=== PATIENT | female | born 1995 | race Caucasian/White ===

== ENCOUNTER → 2017-06-04 | Outpatient (REF) | payer BC ==
[2017-06-04 14:13] LABS: BASO % 0.4 % (0.0-1.0); EOS # 0.1 10^3/uL (0.0-0.50); IMMATURE GRANULOCYTE % 0.3 % (0-0); LYMPH # 1.8 10^3/uL (1.5-6.5); LYMPH % 25.6 % (24.0-44.0); MEAN CORPUSCULAR HEMOGLOBIN 29.4 pg (27.0-33.0); MEAN CORPUSCULAR HGB CONC 33.1 g/dl (32.0-36.5); MEAN CORPUSCULAR VOLUME 88.8 fl (80.0-96.0); MONO # 0.3 10^3/uL (0.0-0.8); MONO % 4.7 % (0.0-5.0); NEUTROPHILS # 4.7 10^3/uL (1.8-7.7); PLATELET COUNT, AUTOMATED 285 10^3/uL (150-450); RED CELL DISTRIBUTION WIDTH 12.3 % (11.5-14.5); WHITE BLOOD COUNT 6.8 10^3/uL (4.0-10.0)
[2017-06-04 14:27] LABS: ALBUMIN 4.1 GM/DL (3.2-5.2); ALBUMIN/GLOBULIN RATIO 1.32 (1.00-1.93); ALKALINE PHOSPHATASE 62 U/L (45-117); ALT/SGPT 29 U/L (12-78); ANION GAP 8 MEQ/L (8-16); AST/SGOT 12 U/L (7-37); BILIRUBIN,TOTAL 0.4 MG/DL (0.2-1.0); BLOOD UREA NITROGEN 7 MG/DL (7-18); CALCIUM LEVEL 9.4 MG/DL (8.5-10.1); CARBON DIOXIDE LEVEL 25 MEQ/L (21-32); CHLORIDE LEVEL 108 MEQ/L (98-107); CREATININE FOR GFR 0.75 MG/DL (0.55-1.02); GLOMERULAR FILTRATION RATE > 60.0 (>60); GLUCOSE, FASTING 91 MG/DL (70-105); POTASSIUM SERUM 4.2 MEQ/L (3.5-5.1); SODIUM LEVEL 141 MEQ/L (136-145); TOTAL PROTEIN 7.2 GM/DL (6.4-8.2)
[2017-06-04 16:04] LABS: ERYTHROCYTE SEDIMENTATION RATE 2 mm/hr (0-20)
== END ==
LOC: M LABNEURO 10:57
PROVIDERS: ATTEND Psychiatry & Neurology Neurology
DX: R51 Headache (principal); R25.1 Tremor, unspecified

== ENCOUNTER → 2019-03-01 | Outpatient (REF) | payer BC ==
[~2019-03-01] MED LIST: CLON0.5T17; DULO1CAP6
[2019-03-04 00:07] LABS: Lyme Disease IgG/IgM Antibodie <0.91 ISR (0.00-0.90); Lyme Disease IgM Ab Quantitati <0.80 index (0.00-0.79)
== END ==
LOC: M SFHCLERA 16:18
PROVIDERS: ATTEND Physician Assistant Medical
DX: G62.9 Polyneuropathy, unspecified (principal)

== ENCOUNTER 2019-03-03 10:13 | Emergency (ER) | payer BC ==
[~2019-03-03] VITALS: Ht 167.6 cm; Wt 93.1 kg
[2019-03-03] MEDS ORDERED: CLON0.5T17 (10:26)
[2019-03-03] MEDS ORDERED: DULO1CAP6 (10:26)
[2019-03-03] MEDS ORDERED: LORazepam 2 MG/ML VIAL (J2060) IV STA (11:58)
[2019-03-03] MEDS ORDERED: CIPROFLOXACIN 500 MG TAB PO ONE (12:00)
[2019-03-03 12:06] LABS: BASO % 0.3 % (0.0-1.0); EOS % 0.2 % (0.0-3.0); HEMATOCRIT 38.3 % (36.0-47.0); HEMOGLOBIN 13.8 g/dl (12.0-15.5); LYMPH % 15.8 % (24.0-44.0); MEAN CORPUSCULAR HEMOGLOBIN 37.3 pg (27.0-33.0); MEAN CORPUSCULAR VOLUME 103.5 fl (80.0-96.0); MONO # 0.6 10^3/uL (0.0-0.8); MONO % 4.9 % (0.0-5.0); NEUTROPHILS # 9.9 10^3/uL (1.8-7.7); NEUTROPHILS % 78.4 % (36.0-66.0); PLATELET COUNT, AUTOMATED 312 10^3/uL (150-450); WHITE BLOOD COUNT 12.6 10^3/uL (4.0-10.0)
[2019-03-03 12:27] LABS: BLOOD UREA NITROGEN 6 MG/DL (7-18); C REACTIVE PROTEIN QUANTITATIV 1.38 MG/DL (0.00-0.30); CALCIUM LEVEL 9.5 MG/DL (8.5-10.1); CARBON DIOXIDE LEVEL 26 MEQ/L (21-32); CHLORIDE LEVEL 101 MEQ/L (98-107); CREATININE FOR GFR 0.63 MG/DL (0.55-1.30); GLOMERULAR FILTRATION RATE > 60.0 (>60); GLUCOSE, FASTING 94 MG/DL (70-100); POTASSIUM SERUM 3.6 MEQ/L (3.5-5.1); SODIUM LEVEL 135 MEQ/L (136-145)
[2019-03-03 12:45] LABS: ERYTHROCYTE SEDIMENTATION RATE 22 mm/hr (0-20)
--- NOTE | 2019-03-03 14:08 | REP ---
REASON FOR EXAM: Progressive lower extremity weakness. COMPARISON: None. TECHNIQUE: MRI of the brain was performed without contrast utilizing axial T1, axial T2, axial FLAIR, axial GRE, axial diffusion-weighted images and sagittal T1 FLAIR as well as sagittal 3D T1-weighted imaging. FINDINGS: There is no restricted diffusion to suggest acute ischemia or infarction. The ventricles and sulci are symmetric. There is no mass effect, midline shift or basal cistern effacement. There is no extra-axial fluid collection. The visualized flow voids are patent. The orbital contents are intact. The visualized paranasal sinuses and mastoid air cells are clear. There is a small mucous retention cyst or polyp within the right maxillary sinus. The remaining visualized paranasal sinuses and mastoid air cells are clear. There is prominence of the adenoid tonsils. There is rightward deviation of the nasal septum with a rightward spur. IMPRESSION: 1. No acute intracranial abnormality. 2. Small mucous retention cyst or polyp within the right maxillary sinus. 3. Prominence of the adenoid tonsils. 4. Rightward deviation of the nasal septum with spur. Electronically Signed by Dougie Weeks MD 03/03/2019 06:26 P
[2019-03-03] MEDS ORDERED: LIDOCAINE 2% W/EPIN INJ 20ML **PRES FREE As Ordered ONE (14:18)
[2019-03-03] MEDS ORDERED: LIDOCAINE 2% W/EPIN INJ 20ML **PRES FREE INJ ONE (14:30)
[2019-03-03 15:36] LABS: APPEARANCE, CSF CLEAR (CLEAR); COLOR, CSF COLORLESS (COLORLESS); CSF TUBE# CELL CNT TUBE 4
[2019-03-03 15:40] LABS: CSF TUBE# GLU TUBE 2; CSF TUBE# TP TUBE 2; GLUCOSE CSF 55 MG/DL (40-75); TOTAL PROTEIN,CSF 33 MG/DL (15-45)
[2019-03-03] MEDS ORDERED: NS 1,000 ML IV ONE (15:45)
[2019-03-03 17:42] VITALS: BP 136/72
== END 2019-03-03 18:03 | disposition home or self-care (01) ==
LOC: M ED 10:13
DX: R20.2 Paresthesia of skin (principal); R29.818 Other symptoms and signs involving the nervous system; M54.2 Cervicalgia; F41.9 Anxiety disorder, unspecified; R11.0 Nausea; F17.210 Nicotine dependence, cigarettes, uncomplicated; Z79.899 Other long term (current) drug therapy
CPT/HCPCS: 62270; 70551; 80048; 82945; 84157; 84702; 85025; 85652; 86140; 87070; 87205; 89050; 96374; 99284; J2060

== ENCOUNTER 2019-03-05 13:42 | Emergency (ER) | payer BC ==
[~2019-03-05] VITALS: Ht 167.6 cm; Wt 92.7 kg
[2019-03-05] MEDS ORDERED: NS 1,000 ML IV SCH (14:30)
[2019-03-05 14:49] LABS: ALBUMIN 3.4 GM/DL (3.2-5.2); ALT/SGPT 39 U/L (12-78); BILIRUBIN,TOTAL 0.8 MG/DL (0.2-1.0); BLOOD UREA NITROGEN 7 MG/DL (7-18); CALCIUM LEVEL 9.9 MG/DL (8.5-10.1); CARBON DIOXIDE LEVEL 20 MEQ/L (21-32); CHLORIDE LEVEL 104 MEQ/L (98-107); CREATININE FOR GFR 0.72 MG/DL (0.55-1.30); GLOMERULAR FILTRATION RATE > 60.0 (>60); GLUCOSE, FASTING 94 MG/DL (70-100); POTASSIUM SERUM 3.8 MEQ/L (3.5-5.1); RHEUMATOID FACTOR QUANT < 10.0 IU/ML (<15.0); SODIUM LEVEL 136 MEQ/L (136-145); TOTAL PROTEIN 7.1 GM/DL (6.4-8.2)
[2019-03-05 14:58] LABS: HEMATOCRIT 36.1 % (36.0-47.0); HEMOGLOBIN 13.1 g/dl (12.0-15.5); MEAN CORPUSCULAR HEMOGLOBIN 37.4 pg (27.0-33.0); MEAN CORPUSCULAR HGB CONC 36.3 g/dl (32.0-36.5); MEAN CORPUSCULAR VOLUME 103.1 fl (80.0-96.0); PLATELET COUNT, AUTOMATED 309 10^3/uL (150-450); WHITE BLOOD COUNT 10.8 10^3/uL (4.0-10.0)
[2019-03-05 17:42] VITALS: BP 132/77
[2019-03-09 00:06] LABS: ANCA-ATYPICAL <1:20 titer (Neg:<1:20); ANTINUCLEAR ANTIBODIES DIRECT Negative (Negative); CYTOPLASMIC NEUTROP AB ANCA-C <1:20 titer (Neg:<1:20); PERINUCLEAR AB ANCA-P <1:20 titer (Neg:<1:20)
[2019-03-11] MEDS ORDERED: CLON0.5T2 PO (17:41)
== END 2019-03-05 17:43 | disposition short-term general hospital (02) ==
LOC: M ED 13:42
DX: R29.818 Other symptoms and signs involving the nervous system (principal); Z79.899 Other long term (current) drug therapy; F17.210 Nicotine dependence, cigarettes, uncomplicated

== ENCOUNTER 2019-03-11 16:04 | Inpatient (IN) | payer BC ==
[~2019-03-11] VITALS: Ht 167.6 cm; Wt 96.3 kg
--- NOTE | 2019-03-11 16:06 | HPEPDOC ---
[employer]ann[employer] Engineer Note DATE OF ADMISSION: 03/11/19 SOURCE OF ADMISSION INFORMATION: 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 She was tested for Lyme disease and had an LP both of which was negative, however did have an EMG study with pathology noted in the left radial and right peroneal nerves after which she was transferred from [facility] ED to [facility] for further work-up. She was admitted to the neurology service and started on IV Solumedrol for working diagnosis of mononeuritis multiplex. Autoimmune work-up was initiated and she was found to have low folate levels and high homocysteine levels. She was switched to po steroids. She developed neuropathic pain for which gabapentin and tizanidine were started. She underwent a sural nerve biopsy on 03/11/19 performed by neurosurgery with results pending. Patient was found to have an E. coli positive Ucx, thought to be contaminated and was not treated. She reported both ankle and both wrist were weak and had an aching sensation in her legs making it difficult to walk. She was evaluated by therapy and found to deficits well below her prior level of function and deemed medically appropriate for discharge to ARU on 03/11/19. On initial evaluation she reports she has had difficulty swallowing intermittently for years and attributes this to her anxiety, reporting a globus sensation. She believes the Klonopin and CYmbalta are working. She also is concerned that she may have a stress fracture in her left ankle, though denies any falls/trauma because when she had visit urgent care this diagnosis had been REVIEW OF SYSTEMS: The following is a completed review of systems and has been reviewed. Review of systems otherwise unremarkable. PAIN: Patient self reports bilateral calf cramping and aching sensation in her feet EYES: No recent vision changes EARS, NOSE, & THROAT: No throat pain, or dysphagia, or rhinorrhea CARDIOVASCULAR: Denies chest pain or palpitations PULMONARY: Denies shortness of breath GASTROINTESTINAL: Denies constipation/diarrhea GENITOURINARY: denies dysuria MUSCULOSKELETAL: bilateral UE and LE weakness NEUROLOGICAL:paresthesias with left wrist drop and bilateral foot drop SKIN: right antecubital ecchymosis PSYCHIATRIC: +anxious All other review of systems found to be negative. PAST MEDICAL HISTORY: as per HPI PAST SURGICAL HISTORY: none ALLERGIES: Please see below. MEDICATIONS: Please see below. 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 GENERAL: Pleasant and cooperative. No acute distress. anxious appearing HEENT: PERRL. Extraocular movements intact. Clear conjunctiva CARDIOVASCULAR: Regular rate and rhythm. No murmurs, rubs, or gallops LUNGS: Clear to auscultation bilaterally. No wheezes. No rhonchi ABDOMEN: Soft, nontender, nondistended. Positive bowel sounds. Normal active bowel sounds NEUROLOGICAL: Alert and oriented times three. Cranial nerves II through XII grossly intact. Sensation slightly decreased to light touch bilat LE in non- dermatomal fashion, dorsum of left hand depressed reflexes throughout EXTREMITIES: 4/5 bilateral elbow flexors, abduction, elbow extension, 3/5 right wrist extension, 0/5 left wrist extension, 4/5 bilat hip flexors, 3/5 knee extensors, ankle DF and EHL mild bilateral foot ad calf edema SKIN: left posterior calf incision without induration or erythema LABORATORY DATA: Please see below. IMAGING:Imaging documentation personally reviewed by record FUNCTIONAL STATUS: Premorbid: Independent with all activities of daily life as well as mobility On Admission: total assist for stairs, Max assist functional transfers, Min assist for 6 steps with 2 people GOALS: Mod-I household distances, stairs, functional transfers, bathing, dressing, toileting, medical optimization, DME ASSESSMENT:23-year-old F with past medical history of anxiety who presents status post acute onset of paresthesias and weakness diagnosed with mononeuritis multiplex PLAN: 1. Rehab: PT- strengthen/stretch/maintain ROM bilat LE, improve ambulation tolerance and endurance OT-PT- strengthen/stretch/maintain ROM bilat UE, utilize resting wrist splints bilat, ok to use Estim 2. Cardio: patient with elevated BPS, will start on lisinopril, medicine consulted to assist in management 3. Resp: encourgae incentive spirometry 4. Neuro: mononeuritis multiplex with left wrist drop, bilateral partial foot drop, neuropathic pain and difficulty bearing weight- c/u prednisone, autoimmune w/u and sural nerve bx results pending, will follow-up with [facility] mathis on discharge -etiology unknown, however on high dose folate 5mg daily for deficiency and elevated homocysteinemia 5. Pain: Tylenol, tizanidine, gabapentin, will add lidoderm patch to tops of feet 6. DVT ppx: Lovenox will order Dopplers 7. GI ppx: protnix 8. Psych- pmh anxiety, c/u Cymbalta and klonopin 9. Dispo: tbd POST ADMISSION PHYSICIAN EVALUATION: Medical and functional status: Description of medical status, medical assessment: As above. Rehabilitation diagnosis and current and prior cold morbid medical conditions as above. Risk of complications and plans to mitigate them as above. Description of functional status current status is as above. Prior status as above. Status compared to preadmission: There are no clinically significant differences between the patient's current status and the information described on the preadmission screening document. Treatment plan anticipated: Treatment plan is as described above. Required disciplines including physical therapy, occupational therapy, others as noted above Intensity of services: 3 hours a day, 6 days a week. Special considerations: There are no specific special or safety considerations that would likely preclude immediate implementation of an intensive rehabilitation program or subsequently influence the plan of care. ATTESTATION: Considering all the information above, it is my best judgment that this patient requires intensive rehabilitation therapy as described above and an inpatient hospital environment due to the complexity of nursing, medical, and rehabilitation needs required by the patient. Furthermore, this patient can reasonably be expected to participate in an benefit from an inpatient rehabilitation stay with an interdisciplinary team approach to the delivery of rehabilitation care under the direction and supervision of rehabilitation physician. PROGNOSIS: good ESTIMATED LENGTH OF STAY:21-24 days. PROJECTED DISCHARGE DESTINATION: Home with family support and any durable medical equipment required to increase functional safety and mobility TIME SPENT COUNSELING AND COORDINATING INITIAL CARE: Greater than 70 minutes. Vital Signs Vital Signs Date Time Temp Pulse Resp B/P (MAP) Pulse Ox O2 Delivery O2 Flow Rate FiO2 03/11/19 16:23 97.4 58 18 174/96 (122) 97 Home Medications Scheduled Clonazepam (Clonazepam) 0.5 Mg Tablet, 0.5 MG PO BID, (Reported) Duloxetine HCl (Duloxetine HCl) 60 Mg Capsule.dr, 60 MG PO DAILY, (Reported) Folic Acid (Folic Acid) 1 Mg Tablet, 5 MG PO DAILY, (Reported) Gabapentin (Gabapentin) 300 Mg Capsule, 300 MG PO TID, (Reported) Pantoprazole Sodium (Pantoprazole Sodium) 40 Mg Tablet.dr, 40 MG PO DAILY, (Reported) Prednisone (Prednisone) 20 Mg Tablet, 80 MG PO ASDIRECTED, (Reported) 80MG DAILY FOR 5 DAYS, THEN DECREASE TO 60MG DAILY, TO START 03/12 [facility] Tizanidine HCl (Tizanidine HCl) 4 Mg Tablet, 4 MG PO BID, (Reported) Scheduled PRN Oxycodone HCl (Oxycodone HCl) 5 Mg Tablet, 2.5 MG PO Q6H PRN for PAIN, (Reported) Allergies Coded Allergies: No Known Allergies (Unverified , 06/04/17) A-FIB/CHADSVASC A-FIB History Current/History of A-Fib/PAF?: No Current PO Anticoag Therapy: No DEBRA ARAIZA MD Mar 11, 2019 16:06
[2019-03-11] MEDS ORDERED: oxyCODONE 5MG TAB PO PRN (16:15)
[2019-03-11] MEDS ORDERED: MOM 30ML SUSPENSION UDC PO PRN (16:15)
[2019-03-11] MEDS ORDERED: BISACODYL 10 MG SUPP PR PRN (16:15)
[2019-03-11] MEDS ORDERED: tiZANidine 4 MG TAB PO PRN (16:15)
[2019-03-11 16:23] VITALS: BP 174/96
[2019-03-11] MEDS ORDERED: GLUCOSE 4 GM CHEW TABLET PO PRN (16:30)
[2019-03-11] MEDS ORDERED: DEXTROSE 50% 50 ML SYRINGE IV PRN (16:30)
[2019-03-11] MEDS ORDERED: GLUCAGON FOR INJ 1 MG VIAL (J1610) SC PRN (16:30)
[2019-03-11] MEDS ORDERED: HumaLOG INSULIN (NovoLOG) PER UNIT SC SCH (17:30)
[2019-03-11] MEDS ORDERED: GABA-843 PO (17:41)
[2019-03-11] MEDS ORDERED: DULO60CA35 PO (17:41)
[2019-03-11] MEDS ORDERED: PRED20TA PO (17:41)
[2019-03-11] MEDS ORDERED: FOLI1TAB11 PO (17:41)
[2019-03-11] MEDS ORDERED: TIZA4TAB4 PO (17:41)
[2019-03-11] MEDS ORDERED: PANT40TA3 PO (17:41)
[2019-03-11] MEDS ORDERED: OXYC-517 PO (17:41)
[2019-03-11] MEDS ORDERED: CLON0.5T8 PO (17:41)
[2019-03-11] MEDS ORDERED: PILL CUTTER 1 EACH XX PRN (18:00)
[2019-03-11 20:00] VITALS: BP 150/75
[2019-03-11] MEDS: clonazePAM 0.5 MG TAB PO SCH (20:52)
[2019-03-11] MEDS: GABAPENTIN 300 MG CAP PO SCH (20:52)
[2019-03-11] MEDS: DOCUSATE SODIUM 100 MG CAP PO SCH (20:52)
[2019-03-11] MEDS: ACETAMINOPHEN TAB 650MG DOSE (2X325MG) PO PRN (20:59)
[2019-03-11] MEDS: SENNA 8.6 MG TAB (SENOKOT) PO SCH (20:59)
[2019-03-12] MEDS: ACETAMINOPHEN TAB 650MG DOSE (2X325MG) PO PRN ×4 (03:05→21:30)
[2019-03-12 06:00] VITALS: BP 151/77
[2019-03-12 07:42] LABS: BASO % 0.1 % (0.0-1.0); EOS % 0.2 % (0.0-3.0); HEMATOCRIT 31.6 % (36.0-47.0); HEMOGLOBIN 10.9 g/dl (12.0-15.5); LYMPH # 1.6 10^3/uL (1.5-6.5); LYMPH % 14.3 % (24.0-44.0); MEAN CORPUSCULAR HEMOGLOBIN 35.2 pg (27.0-33.0); MEAN CORPUSCULAR HGB CONC 34.5 g/dl (32.0-36.5); MEAN CORPUSCULAR VOLUME 101.9 fl (80.0-96.0); MONO # 0.8 10^3/uL (0.0-0.8); MONO % 6.8 % (0.0-5.0); NEUTROPHILS # 8.5 10^3/uL (1.8-7.7); NEUTROPHILS % 77.1 % (36.0-66.0); PLATELET COUNT, AUTOMATED 223 10^3/uL (150-450)
[2019-03-12] MEDS: GABAPENTIN 300 MG CAP PO SCH ×3 (07:49→21:23)
[2019-03-12] MEDS: PANTOPRAZOLE 40MG TAB (PROTONIX) PO SCH (07:50)
[2019-03-12] MEDS: FOLIC ACID 1 MG TAB PO SCH (07:50)
[2019-03-12] MEDS: clonazePAM 0.5 MG TAB PO SCH ×2 (07:51→21:24)
[2019-03-12] MEDS: predniSONE 20 MG TAB PO SCH (07:51)
[2019-03-12] MEDS: DULoxetine 30 MG CAP (CYMBALTA) PO SCH (07:51)
[2019-03-12] MEDS: DOCUSATE SODIUM 100 MG CAP PO SCH ×2 (07:51→21:24)
[2019-03-12] MEDS: ENOXAPARIN 40 MG/0.4 ML SYRINGE (J1650) SC SCH (07:52)
[2019-03-12 08:07] LABS: ALBUMIN 2.6 GM/DL (3.2-5.2); ALT/SGPT 262 U/L (12-78); BILIRUBIN,TOTAL 0.6 MG/DL (0.2-1.0); BLOOD UREA NITROGEN 19 MG/DL (7-18); CALCIUM LEVEL 8.4 MG/DL (8.5-10.1); CARBON DIOXIDE LEVEL 29 MEQ/L (21-32); CHLORIDE LEVEL 105 MEQ/L (98-107); CREATININE FOR GFR 0.39 MG/DL (0.55-1.30); GLOMERULAR FILTRATION RATE > 60.0 (>60); GLUCOSE, FASTING 79 MG/DL (70-100); POTASSIUM SERUM 3.7 MEQ/L (3.5-5.1); SODIUM LEVEL 139 MEQ/L (136-145); TOTAL PROTEIN 5.4 GM/DL (6.4-8.2)
[2019-03-12] MEDS: LIDOCAINE 5% (LIDODERM) PATCH TD SCH (10:22)
[2019-03-12] MEDS: LISINOPRIL 10 MG TAB PO SCH (10:22)
--- NOTE | 2019-03-12 14:45 | REP ---
Left ankle four views: On the AP view, the lateral portion of the ankle mortise appears slightly widened. This should be correlated with clinical point tenderness. This could be artifact from positioning. There is an accessory ossicle at the tip of the medial malleolus. No fracture is identified. Mineralization and joint spaces are otherwise unremarkable. There is a small calcaneal plantar spur. Impression: Questionable widening of the lateral portion of the ankle mortise. This may be secondary to ligamentous injury. Correlation with clinical point tenderness is recommended. Otherwise, negative left ankle. Electronically Signed by Lauro Thibodeaux MD 03/12/2019 02:36 P
--- NOTE | 2019-03-12 14:55 | REP ---
Bilateral lower extremity Duplex Doppler venous ultrasound: Real time compression and duplex Doppler interrogation of the bilateral lower extremity deep venous system is performed. Bilaterally, the common femoral, superficial femoral and popliteal veins are fully compressible with transducer pressure and demonstrate normal spontaneous and phasic flow, without evidence of deep venous thrombosis. Impression: No evidence of deep venous thrombosis of the bilateral lower extremity femoral popliteal venous system. Electronically Signed by Lauro Jay MD 03/12/2019 02:46 P
[2019-03-12 20:00] VITALS: BP 170/108
[2019-03-12] MEDS: SENNA 8.6 MG TAB (SENOKOT) PO SCH (21:24)
[2019-03-12] MEDS: **NOTE PATIENT COMMENT** MISC XX SCH (21:26)
[2019-03-13 06:00] VITALS: BP 168/100
[2019-03-13 07:20] VITALS: BP 168/74
--- NOTE | 2019-03-13 07:52 | REPVR ---
EXAM: US Abdomen Limited, Right Upper Quadrant EXAM DATE/TIME: 03/13/2019 6:45 AM CLINICAL HISTORY: 23 years old, female; Abnormal findings; Abnormal lab test; Elevated liver enzymes; Additional info: Elevated alt/ast TECHNIQUE: Imaging protocol: Real-time ultrasound of the abdomen with image documentation. Examination was focused on the right upper quadrant. COMPARISON: No relevant prior studies available. FINDINGS: Liver: The liver is increased in echotexture, suggesting fatty infiltration and/or fibrosis. There is no demonstrated mass or intrahepatic biliary ductal dilatation, evaluation for which is somewhat limited due to the increased echotexture. Gallbladder: The gallbladder is without demonstrated stones, sludge or wall thickening, and there is no pericholecystic fluid. Sonographic Erwin sign is reportedly negative. Common bile duct: The common bile duct is normal in size for a patient of this age at 3.5 mm. Pancreas: The pancreas is largely obscured by overlying bowel gas. Right kidney: The right kidney measures 12.1 x 5.2 x 6.4 cm. There is no hydronephrosis or demonstrated renal stone, cyst or mass. Inferior vena cava: The IVC is present. IMPRESSION: 1. Echogenic liver, suggesting fatty infiltration and/or fibrosis. 2. Pancreas largely obscured by bowel gas. Electronically signed by: Emir Mcnamara On 03/13/2019 07:52:48 AM
[2019-03-13] MEDS: ENOXAPARIN 40 MG/0.4 ML SYRINGE (J1650) SC SCH (10:28)
[2019-03-13] MEDS: predniSONE 20 MG TAB PO SCH (10:29)
[2019-03-13] MEDS: FOLIC ACID 1 MG TAB PO SCH (10:29)
[2019-03-13] MEDS: DULoxetine 30 MG CAP (CYMBALTA) PO SCH (10:31)
[2019-03-13] MEDS: ACETAMINOPHEN TAB 650MG DOSE (2X325MG) PO PRN (10:31)
[2019-03-13] MEDS: clonazePAM 0.5 MG TAB PO SCH ×2 (10:31→21:08)
[2019-03-13] MEDS: GABAPENTIN 300 MG CAP PO SCH ×3 (10:31→21:08)
[2019-03-13] MEDS: DOCUSATE SODIUM 100 MG CAP PO SCH ×2 (10:32→21:08)
[2019-03-13] MEDS: PANTOPRAZOLE 40MG TAB (PROTONIX) PO SCH ×2 (10:32→21:08)
[2019-03-13] MEDS: LISINOPRIL 10 MG TAB PO SCH (10:32)
[2019-03-13] MEDS: LIDOCAINE 5% (LIDODERM) PATCH TD SCH (10:33)
[2019-03-13 14:00] VITALS: BP 139/92
[2019-03-13 20:00] VITALS: BP 138/92
[2019-03-13] MEDS: SENNA 8.6 MG TAB (SENOKOT) PO SCH (21:08)
[2019-03-13] MEDS: **NOTE PATIENT COMMENT** MISC XX SCH (21:11)
[2019-03-14 06:00] VITALS: BP 166/96
[2019-03-14 06:40] LABS: HEMATOCRIT 35.2 % (36.0-47.0); HEMOGLOBIN 12.3 g/dl (12.0-15.5); MEAN CORPUSCULAR HEMOGLOBIN 35.2 pg (27.0-33.0); MEAN CORPUSCULAR HGB CONC 34.9 g/dl (32.0-36.5); MEAN CORPUSCULAR VOLUME 100.9 fl (80.0-96.0); PLATELET COUNT, AUTOMATED 209 10^3/uL (150-450); RED BLOOD COUNT 3.49 10^6/uL (4.00-5.40); WHITE BLOOD COUNT 11.9 10^3/uL (4.0-10.0)
[2019-03-14] MEDS: PANTOPRAZOLE 40MG TAB (PROTONIX) PO SCH ×2 (09:02→20:15)
[2019-03-14] MEDS: GABAPENTIN 300 MG CAP PO SCH ×3 (09:02→20:15)
[2019-03-14] MEDS: FOLIC ACID 1 MG TAB PO SCH (09:02)
[2019-03-14] MEDS: clonazePAM 0.5 MG TAB PO SCH ×2 (09:02→20:15)
[2019-03-14] MEDS: DOCUSATE SODIUM 100 MG CAP PO SCH ×2 (09:02→20:15)
[2019-03-14] MEDS: ENOXAPARIN 40 MG/0.4 ML SYRINGE (J1650) SC SCH (09:02)
[2019-03-14] MEDS: DULoxetine 30 MG CAP (CYMBALTA) PO SCH (09:02)
[2019-03-14] MEDS: predniSONE 20 MG TAB PO SCH (09:02)
[2019-03-14] MEDS: LIDOCAINE 5% (LIDODERM) PATCH TD SCH (09:02)
[2019-03-14] MEDS: LISINOPRIL 20 MG TAB PO SCH (09:03)
[2019-03-14 14:00] VITALS: BP 116/80
[2019-03-14 20:00] VITALS: BP 129/78
[2019-03-14] MEDS: **NOTE PATIENT COMMENT** MISC XX SCH (20:15)
[2019-03-14] MEDS: SENNA 8.6 MG TAB (SENOKOT) PO SCH (20:15)
[2019-03-15 06:00] VITALS: BP 136/91
[2019-03-15] MEDS: DOCUSATE SODIUM 100 MG CAP PO SCH ×2 (09:00→22:20)
[2019-03-15] MEDS: LIDOCAINE 5% (LIDODERM) PATCH TD SCH (09:02)
[2019-03-15] MEDS: FOLIC ACID 1 MG TAB PO SCH (09:02)
[2019-03-15] MEDS: PANTOPRAZOLE 40MG TAB (PROTONIX) PO SCH ×2 (09:03→22:20)
[2019-03-15] MEDS: ENOXAPARIN 40 MG/0.4 ML SYRINGE (J1650) SC SCH (09:03)
[2019-03-15] MEDS: LISINOPRIL 20 MG TAB PO SCH (09:03)
[2019-03-15] MEDS: GABAPENTIN 300 MG CAP PO SCH ×3 (09:03→22:20)
[2019-03-15] MEDS: DULoxetine 30 MG CAP (CYMBALTA) PO SCH (09:03)
[2019-03-15] MEDS: predniSONE 20 MG TAB PO SCH (09:03)
[2019-03-15] MEDS: clonazePAM 0.5 MG TAB PO SCH ×2 (09:03→22:20)
[2019-03-15] MEDS ORDERED: IBUPROFEN 400 MG TAB PO PRN (12:00)
[2019-03-15 14:00] VITALS: BP 134/86
[2019-03-15 20:00] VITALS: BP 162/100
[2019-03-15 20:10] VITALS: BP 128/78
[2019-03-15] MEDS: **NOTE PATIENT COMMENT** MISC XX SCH (21:00)
[2019-03-15] MEDS: SENNA 8.6 MG TAB (SENOKOT) PO SCH (22:20)
[2019-03-16 06:28] VITALS: BP 160/80
[2019-03-16] MEDS: LISINOPRIL 20 MG TAB PO SCH (08:42)
[2019-03-16] MEDS: clonazePAM 0.5 MG TAB PO SCH ×2 (08:42→21:24)
[2019-03-16] MEDS: predniSONE 20 MG TAB PO SCH (08:42)
[2019-03-16] MEDS: PANTOPRAZOLE 40MG TAB (PROTONIX) PO SCH ×2 (08:42→21:24)
[2019-03-16] MEDS: FOLIC ACID 1 MG TAB PO SCH (08:43)
[2019-03-16] MEDS: LIDOCAINE 5% (LIDODERM) PATCH TD SCH (08:43)
[2019-03-16] MEDS: ENOXAPARIN 40 MG/0.4 ML SYRINGE (J1650) SC SCH (08:43)
[2019-03-16] MEDS: GABAPENTIN 300 MG CAP PO SCH ×3 (08:43→21:24)
[2019-03-16] MEDS: DULoxetine 30 MG CAP (CYMBALTA) PO SCH (08:43)
[2019-03-16] MEDS: DOCUSATE SODIUM 100 MG CAP PO SCH ×2 (08:44→21:00)
[2019-03-16 14:00] VITALS: BP 164/94
--- NOTE | 2019-03-16 19:47 | IPN ---
DATE: 03/16/2019 This is a 23-year-old female with mononeuritis multiplex with foot drop and left wrist drop. She was sitting up in the wheelchair. She states that her left wrist is starting to work a little better. She continues to do her exercises and her therapy, feels she is making progress. She had elevated liver enzymes. Liver ultrasound done on 03/13/2019 shows echogenic liver, suggesting fatty infiltration and/or fibrosis. She had a vascular ultrasound bilateral extremities. No evidence of deep vein thrombosis (DVT). She continues on steroids. Blood pressure still remains slightly elevated, partially probably because of steroids. She continues on lisinopril; she is on 20 mg by mouth daily. Her mother was with her, is very supportive. She had no specific complaints today. She continues using Tylenol, gabapentin, and tizanidine for pain and Lidoderm patch. She says everything is helping. OBJECTIVE: Blood pressure 164/94, pulse 83, temperature 97.2, pulse oximetry 97. The patient is alert and oriented times three. The patient is alert and oriented times three. Pupils equal and reactive to light. Extraocular muscles intact. Oropharynx clear. Conjunctivae is normal. No facial asymmetry. Pharynx: Tongue and gums pink and moist. Tongue is midline. Neck is supple without lymphadenopathy. No thyromegaly. No goiter. Carotids are 2+ without bruit. Chest is clear to auscultation without wheeze or retractions. Heart is regular. Abdomen is benign. Bowel sounds are positive. Genital/Rectal: Not done. Extremities: Show no cyanosis, clubbing or edema. Left wrist very weakened. Mild pedal edema. Peripheral pulses equal and palpable bilaterally. IMPRESSION/PLAN: Mononeuritis with foot drop and left wrist drop. Physical therapy (PT), occupational therapy (OT) per rehab team. Elevated blood pressure. Will continue lisinopril. Will add amlodipine. Smoking cessation, patch offered. Encourage incentive spirometry. Pain. Continue Tylenol, tizanidine, gabapentin and Lidoderm patch as is already ordered. Deep vein thrombosis (DVT) prophylaxis. Lovenox. Gastrointestinal (GI) prophylaxis. Patient on steroids, Protonix. No complaint of abdominal discomfort or heartburn. Psychiatric. History of anxiety. Continue Cymbalta and Klonopin.
[2019-03-16 20:00] VITALS: BP 158/91
[2019-03-16] MEDS: SENNA 8.6 MG TAB (SENOKOT) PO SCH (21:00)
[2019-03-16] MEDS: amLODIPine 5 MG TAB PO SCH (21:31)
[2019-03-16] MEDS: **NOTE PATIENT COMMENT** MISC XX SCH (22:00)
[2019-03-16] MEDS: ANALGESIC BALM CRM 120 GM TOP SCH (22:00)
[2019-03-17 06:00] VITALS: BP 140/87
[2019-03-17 07:08] LABS: HEMATOCRIT 35.2 % (36.0-47.0); HEMOGLOBIN 12.1 g/dl (12.0-15.5); MEAN CORPUSCULAR HEMOGLOBIN 36.6 pg (27.0-33.0); MEAN CORPUSCULAR HGB CONC 34.4 g/dl (32.0-36.5); MEAN CORPUSCULAR VOLUME 106.3 fl (80.0-96.0); PLATELET COUNT, AUTOMATED 230 10^3/uL (150-450); RED BLOOD COUNT 3.31 10^6/uL (4.00-5.40); WHITE BLOOD COUNT 12.9 10^3/uL (4.0-10.0)
[2019-03-17] MEDS: amLODIPine 5 MG TAB PO SCH (09:11)
[2019-03-17] MEDS: DOCUSATE SODIUM 100 MG CAP PO SCH ×2 (09:11→21:24)
[2019-03-17] MEDS: LIDOCAINE 5% (LIDODERM) PATCH TD SCH (09:11)
[2019-03-17] MEDS: PANTOPRAZOLE 40MG TAB (PROTONIX) PO SCH ×2 (09:12→21:25)
[2019-03-17] MEDS: DULoxetine 30 MG CAP (CYMBALTA) PO SCH (09:12)
[2019-03-17] MEDS: GABAPENTIN 300 MG CAP PO SCH ×3 (09:12→21:25)
[2019-03-17] MEDS: FOLIC ACID 1 MG TAB PO SCH (09:12)
[2019-03-17] MEDS: ENOXAPARIN 40 MG/0.4 ML SYRINGE (J1650) SC SCH (09:12)
[2019-03-17] MEDS: clonazePAM 0.5 MG TAB PO SCH ×2 (09:12→21:24)
[2019-03-17] MEDS: LISINOPRIL 20 MG TAB PO SCH (09:12)
[2019-03-17] MEDS: predniSONE 20 MG TAB PO SCH (09:12)
[2019-03-17] MEDS: ANALGESIC BALM CRM 120 GM TOP SCH ×2 (09:13→21:26)
[2019-03-17 14:00] VITALS: BP 128/75
--- NOTE | 2019-03-17 14:48 | MHCRPDOC ---
[facility] Consultation Consultation DATE OF CONSULTATION: 03/17/19 CONSULTATION REQUESTED BY: Dr. Todd via telephone Received call from Dr. Shahid's patient on cymbalta 60mg with some liver difficulties, discussed alternative options for medications Effexor or TCA (SNRI) same MOA ideal, if can tolerate side effect, provider okay with phone consult for now, will call back if any difficulties, concerns or safety issues arise for full in person consult. Please redirect any consults to this provider as she is on my consult list. Vital Signs Vital Signs Date Time Temp Pulse Resp B/P (MAP) Pulse Ox O2 Delivery O2 Flow Rate FiO2 03/17/19 09:12 140/87 03/17/19 09:11 85 03/17/19 06:00 98.8 18 98 Laboratory Data 24H Labs Laboratory Tests 2 03/17/19 06:36: Nucleated Red Blood Cells % (auto) 0.0 Home Medications Current Medications Current Medications Medications (Trade) Dose Ordered Sig/Dori Route PRN Reason Start Time Stop Time Status Last Admin Dose Admin Acetaminophen (Tylenol Tab) 650 mg Q4HP PRN PO fever/MILD PAIN (PS 1-4) 03/11/19 16:15 03/13/19 13:49 DC 03/13/19 10:31 Amlodipine Besylate (Norvasc) 5 mg DAILY PO 03/16/19 19:30 03/17/19 09:11 Bisacodyl (Dulcolax Suppository) 10 mg DAILYPRN PRN [place] CONSTIPATION 03/11/19 16:15 Clonazepam (KlonoPIN) 0.5 mg BID PO 03/11/19 21:00 03/17/19 09:12 Dextrose (Dextrose 50%) 25 ml ASDIRECTED PRN IV SEE LABEL COMMENTS 03/11/19 16:30 03/11/19 17:22 DC Docusate Sodium (Colace) 100 mg BID PO 03/11/19 21:00 03/17/19 09:11 Duloxetine HCl (Cymbalta) 60 mg DAILY PO 03/12/19 09:00 03/17/19 09:12 Enoxaparin Sodium (Lovenox) 40 mg DAILY SC 03/12/19 09:00 03/17/19 09:12 Folic Acid (Folic Acid) 5 mg DAILY PO 03/12/19 09:00 03/17/19 09:12 Gabapentin (Neurontin) 300 mg TID PO 03/11/19 21:00 03/17/19 09:12 Glucagon (Glucagon) 1 mg ASDIRECTED PRN SC SEE LABEL COMMENTS 03/11/19 16:30 03/11/19 17:22 DC Glucose (Glucose) 16 GM ASDIRECTED PRN PO SEE LABEL COMMENTS 03/11/19 16:30 03/11/19 17:22 DC Home Med (Med Rec Complete!) ASDIRECTED XX 03/11/19 17:45 03/11/19 17:49 DC Ibuprofen (Advil) 400 mg Q8HP PRN PO PAIN 03/15/19 12:00 03/15/19 22:20 Insulin Human Lispro (HumaLOG INSULIN) SEE PROTOCOL TABLE AC SC 03/11/19 17:30 03/11/19 17:30 DC Lidocaine (Lidoderm Patch) 2 patch DAILY TD 03/12/19 09:00 03/17/19 09:11 Lisinopril (Prinivil) 10 mg DAILY PO 03/12/19 09:00 03/13/19 13:49 DC 03/13/19 10:32 Lisinopril (Prinivil) 20 mg DAILY PO 03/14/19 09:00 03/17/19 09:12 Magnesium Hydroxide (Milk Of Magnesia) 30 ml DAILYPRN PRN PO CONSTIPATION 03/11/19 16:15 Menthol/Methyl Salicylate (Bengay Cream) bilat calf, av... BID TOP 03/16/19 21:00 03/17/19 09:13 Non-Formulary Medication ( See Comment Field Below ) REMOVE LIDODERM PATCH DAILY@21 XX 03/12/19 21:00 03/16/19 22:00 Oxycodone HCl (Roxicodone, Oxyir) 2.5 mg Q4HP PRN PO PAIN 03/11/19 16:15 03/12/19 10:10 DC Pantoprazole Sodium (Protonix) 40 mg BID PO 03/13/19 21:00 03/17/19 09:12 Pantoprazole Sodium (Protonix) 40 mg DAILY PO 03/12/19 09:00 03/13/19 13:49 DC 03/13/19 10:32 Prednisone (Deltasone) 60 mg DAILY PO 03/17/19 09:00 03/17/19 09:12 Prednisone (Deltasone) 80 mg DAILY PO 03/12/19 09:00 03/16/19 23:00 DC 03/16/19 08:42 Senna (Senokot) 1 tab QHS PO 03/11/19 21:00 03/15/19 22:20 Tizanidine HCl (Zanaflex) 2 mg Q8HP PRN PO PAIN OR DISCOMFORT 03/11/19 16:15 03/15/19 01:51 Scheduled Clonazepam (Clonazepam) 0.5 Mg Tablet, 0.5 MG PO BID, (Reported) Duloxetine HCl (Duloxetine HCl) 60 Mg Capsule.dr, 60 MG PO DAILY, (Reported) Folic Acid (Folic Acid) 1 Mg Tablet, 5 MG PO DAILY, (Reported) Gabapentin (Gabapentin) 300 Mg Capsule, 300 MG PO TID, (Reported) Pantoprazole Sodium (Pantoprazole Sodium) 40 Mg Tablet.dr, 40 MG PO DAILY, (Reported) Prednisone (Prednisone) 20 Mg Tablet, 80 MG PO ASDIRECTED, (Reported) 80MG DAILY FOR 5 DAYS, THEN DECREASE TO 60MG DAILY, TO START 03/12 [facility] Tizanidine HCl (Tizanidine HCl) 4 Mg Tablet, 4 MG PO BID, (Reported) Scheduled PRN Oxycodone HCl (Oxycodone HCl) 5 Mg Tablet, 2.5 MG PO Q6H PRN for PAIN, (Rep orted) Allergies Coded Allergies: No Known Allergies (Unverified , 06/04/17) SHAMIR GRAHAM DO Mar 17, 2019 14:48
--- NOTE | 2019-03-17 17:04 | IPNPDOC ---
PM&R Progress Note DATE OF SERVICE: Mar 16, 2019 Steel Sampler Progress Note Subjective: Patient seen in room with her dad, stating she is feeling well, but has an ache in her legs. She is open to trying Bengay. REVIEW OF SYSTEMS: The following is a completed review of systems and has been reviewed. Review of systems otherwise unremarkable. PAIN: Patient self reports bilateral calf cramping and aching sensation in her feet EYES: No recent vision changes EARS, NOSE, & THROAT: No throat pain, or dysphagia, or rhinorrhea CARDIOVASCULAR: Denies chest pain or palpitations PULMONARY: Denies shortness of breath GASTROINTESTINAL: Denies constipation/diarrhea GENITOURINARY: denies dysuria MUSCULOSKELETAL: bilateral UE and LE weakness NEUROLOGICAL:paresthesias with left wrist drop and bilateral foot drop SKIN: right antecubital ecchymosis PSYCHIATRIC: +anxious All other review of systems found to be negative. PHYSICAL EXAMINATION: VITAL SIGNS: Please see below. GENERAL: Pleasant and cooperative. No acute distress. anxious appearing HEENT: PERRL. Extraocular movements intact. Clear conjunctiva CARDIOVASCULAR: Regular rate and rhythm. No murmurs, rubs, or gallops LUNGS: Clear to auscultation bilaterally. No wheezes. No rhonchi ABDOMEN: Soft, nontender, nondistended. Positive bowel sounds. Normal active bowel sounds NEUROLOGICAL: Alert and oriented times three. Cranial nerves II through XII grossly intact. Sensation slightly decreased to light touch bilat LE in non- dermatomal fashion, dorsum of left hand depressed reflexes throughout EXTREMITIES: 4/5 bilateral elbow flexors, abduction, elbow extension, 3/5 right wrist extension, 0/5 left wrist extension, 4/5 bilat hip flexors, 3/5 knee extensors, ankle DF and EHL mild bilateral foot ad calf edema SKIN: left posterior calf incision without induration or erythema ASSESSMENT:23-year-old F with past medical history of anxiety who presents status post acute onset of paresthesias and weakness diagnosed with mononeuritis multiplex PLAN: 1. Rehab: PT- strengthen/stretch/maintain ROM bilat LE, improve ambulation tolerance and endurance, better standing tolerance, able to propel own wheelchair OT-PT- strengthen/stretch/maintain ROM bilat UE, utilize resting wrist splints bilat, ok to use Estim 2. Cardio: patient with elevated BPS, will start on lisinopril, medicine consulted to assist in management 3. Resp: encourgae incentive spirometry 4. Neuro: mononeuritis multiplex with left wrist drop, bilateral partial foot drop, neuropathic pain and difficulty bearing weight- c/u prednisone, autoimmune w/u and sural nerve bx results pending, will follow-up with [facility] neuro on discharge -etiology unknown, however on high dose folate 5mg daily for deficiency and elevated homocysteinemia 5. Pain: avoid Tylenol in setting of elevated liver enzymes, -c/u tizanidine, gabapentin, and menthol salicylate 6. DVT ppx: Lovenox will order Dopplers 7. GI: elevated ALT/AST with Liver US showing, "Echogenic liver, suggesting fatty infiltration and/or fibrosis.", patient endorses drinking more than 10 drinks/day on the weekends and drinks wine daily, denies taking any pain pills with tylenol in it, denies IVDU, was taking control up until a few months ago- suspect her fatty liver is due to a combination of obesity, ETOH consumption, Cymbalta, and control- will change her Cymbalta with Psych consult, and refer to GI -ppx c/u protonix 8. Psych- pmh anxiety, c/u Cymbalta and klonopin 9. Dispo: tbd Allergies Coded Allergies: No Known Allergies (Unverified , 06/04/17) Vital Signs Vital Signs Date Time Temp Pulse Resp B/P (MAP) Pulse Ox O2 Delivery O2 Flow Rate FiO2 03/17/19 14:00 97.2 99 18 128/75 (92) 97 Laboratory Data CBC/BMP Laboratory Tests 03/17/19 06:36 Red Blood Count 3.31 L, Mean Corpuscular Volume 106.3 H, Mean Corpuscular Hemoglobin 36.6 H, Mean Corpuscular Hemoglobin Concent 34.4, Red Cell Distribution Width 12.4 Labs 24H Laboratory Tests 2 03/17/19 06:36: Nucleated Red Blood Cells % (auto) 0.0 Current Medications Current Medications Current Medications Medications (Trade) Dose Ordered Sig/Dori Route PRN Reason Start Time Stop Time Status Last Admin Dose Admin Acetaminophen (Tylenol Tab) 650 mg Q4HP PRN PO fever/MILD PAIN (PS 1-4) 03/11/19 16:15 03/13/19 13:49 DC 03/13/19 10:31 Amitriptyline HCl (Elavil) 25 mg DAILY PO 03/23/19 09:00 03/23/19 09:01 Amitriptyline HCl (Elavil) 25 mg QHS PO 03/17/19 21:00 03/22/19 23:59 Amitriptyline HCl (Elavil) 50 mg QHS PO 03/23/19 21:00 Amlodipine Besylate (Norvasc) 5 mg DAILY PO 03/16/19 19:30 03/17/19 09:11 Bisacodyl (Dulcolax Suppository) 10 mg DAILYPRN PRN [place] CONSTIPATION 03/11/19 16:15 Clonazepam (KlonoPIN) 0.5 mg BID PO 03/11/19 21:00 03/17/19 09:12 Dextrose (Dextrose 50%) 25 ml ASDIRECTED PRN IV SEE LABEL COMMENTS 03/11/19 16:30 03/11/19 17:22 DC Docusate Sodium (Colace) 100 mg BID PO 03/11/19 21:00 03/17/19 09:11 Duloxetine HCl (Cymbalta) 30 mg DAILY PO 03/18/19 09:00 03/22/19 12:00 Duloxetine HCl (Cymbalta) 60 mg DAILY PO 03/12/19 09:00 03/17/19 14:46 DC 03/17/19 09:12 Enoxaparin Sodium (Lovenox) 40 mg DAILY SC 03/12/19 09:00 03/17/19 09:12 Folic Acid (Folic Acid) 5 mg DAILY PO 03/12/19 09:00 03/17/19 09:12 Gabapentin (Neurontin) 300 mg TID PO 03/11/19 21:00 03/17/19 16:57 Glucagon (Glucagon) 1 mg ASDIRECTED PRN SC SEE LABEL COMMENTS 03/11/19 16:30 03/11/19 17:22 DC Glucose (Glucose) 16 GM ASDIRECTED PRN PO SEE LABEL COMMENTS 03/11/19 16:30 03/11/19 17:22 DC Home Med (Med Rec Complete!) ASDIRECTED XX 03/11/19 17:45 03/11/19 17:49 DC Ibuprofen (Advil) 400 mg Q8HP PRN PO PAIN 03/15/19 12:00 03/17/19 14:46 DC 03/15/19 22:20 Insulin Human Lispro (HumaLOG INSULIN) SEE PROTOCOL TABLE AC SC 03/11/19 17:30 03/11/19 17:30 DC Lidocaine (Lidoderm Patch) 2 patch DAILY TD 03/12/19 09:00 03/17/19 09:11 Lisinopril (Prinivil) 10 mg DAILY PO 03/12/19 09:00 03/13/19 13:49 DC 03/13/19 10:32 Lisinopril (Prinivil) 20 mg DAILY PO 03/14/19 09:00 03/17/19 09:12 Magnesium Hydroxide (Milk Of Magnesia) 30 ml DAILYPRN PRN PO CONSTIPATION 03/11/19 16:15 Menthol/Methyl Salicylate (Bengay Cream) bilat calf, av... BID TOP 03/16/19 21:00 03/17/19 09:13 Non-Formulary Medication ( See Comment Field Below ) REMOVE LIDODERM PATCH DAILY@21 XX 03/12/19 21:00 03/16/19 22:00 Oxycodone HCl (Roxicodone, Oxyir) 2.5 mg Q4HP PRN PO PAIN 03/11/19 16:15 03/12/19 10:10 DC Pantoprazole Sodium (Protonix) 40 mg BID PO 03/13/19 21:00 03/17/19 09:12 Pantoprazole Sodium (Protonix) 40 mg DAILY PO 03/12/19 09:00 03/13/19 13:49 DC 03/13/19 10:32 Prednisone (Deltasone) 60 mg DAILY PO 03/17/19 09:00 03/17/19 09:12 Prednisone (Deltasone) 80 mg DAILY PO 03/12/19 09:00 03/16/19 23:00 DC 03/16/19 08:42 Senna (Senokot) 1 tab QHS PO 03/11/19 21:00 03/15/19 22:20 Tizanidine HCl (Zanaflex) 2 mg Q8HP PRN PO PAIN OR DISCOMFORT 03/11/19 16:15 03/15/19 01:51 DEBRA ARAIZA MD Mar 17, 2019 17:04
--- NOTE | 2019-03-17 17:07 | IPNPDOC ---
PM&R Progress Note DATE OF SERVICE: Mar 17, 2019 Senior Java Software Engineer Progress Note Subjective: Patient seen in room stating she feels she is getting stronger. She understands she needs to avoid drinking excessive ETOH and was counseled on why her Cymbalta was going to be cross-tapered. REVIEW OF SYSTEMS: The following is a completed review of systems and has been reviewed. Review of systems otherwise unremarkable. PAIN: Patient self reports bilateral calf cramping and aching sensation in her feet EYES: No recent vision changes EARS, NOSE, & THROAT: No throat pain, or dysphagia, or rhinorrhea CARDIOVASCULAR: Denies chest pain or palpitations PULMONARY: Denies shortness of breath GASTROINTESTINAL: Denies constipation/diarrhea GENITOURINARY: denies dysuria MUSCULOSKELETAL: bilateral UE and LE weakness NEUROLOGICAL:paresthesias with left wrist drop and bilateral foot drop SKIN: right antecubital ecchymosis PSYCHIATRIC: +anxious All other review of systems found to be negative. PHYSICAL EXAMINATION: VITAL SIGNS: Please see below. GENERAL: Pleasant and cooperative. No acute distress. anxious appearing HEENT: PERRL. Extraocular movements intact. Clear conjunctiva CARDIOVASCULAR: Regular rate and rhythm. No murmurs, rubs, or gallops LUNGS: Clear to auscultation bilaterally. No wheezes. No rhonchi ABDOMEN: Soft, nontender, nondistended. Positive bowel sounds. Normal active bowel sounds NEUROLOGICAL: Alert and oriented times three. Cranial nerves II through XII grossly intact. Sensation slightly decreased to light touch bilat LE in non- dermatomal fashion, dorsum of left hand depressed reflexes throughout EXTREMITIES: 4/5 bilateral elbow flexors, abduction, elbow extension, 3/5 right wrist extension, 0/5 left wrist extension, 4/5 bilat hip flexors, 3/5 knee extensors, ankle DF and EHL mild bilateral foot ad calf edema SKIN: left posterior calf incision without induration or erythema ASSESSMENT:23-year-old F with past medical history of anxiety who presents status post acute onset of paresthesias and weakness diagnosed with mononeuritis multiplex PLAN: 1. Rehab: PT- strengthen/stretch/maintain ROM bilat LE, improve ambulation tolerance and endurance, better standing tolerance, able to propel own wheelchair OT-PT- strengthen/stretch/maintain ROM bilat UE, utilize resting wrist splints bilat, ok to use Estim 2. Cardio: patient with elevated BPS, will start on lisinopril, medicine consulted to assist in management 3. Resp: encourgae incentive spirometry 4. Neuro: mononeuritis multiplex with left wrist drop, bilateral partial foot drop, neuropathic pain and difficulty bearing weight- c/u prednisone, autoimmune w/u and sural nerve bx results pending, will follow-up with [facility] neuro on di scharge -etiology unknown, however on high dose folate 5mg daily for deficiency and elevated homocysteinemia 5. Pain: avoid Tylenol in setting of elevated liver enzymes, c/u tizanidine, gabapentin, and menthol salicylate 6. DVT ppx: Lovenox, dopplers negative 7. GI: elevated ALT/AST with Liver US showing, "Echogenic liver, suggesting fatty infiltration and/or fibrosis.", patient endorses drinking more than 10 drinks/day on the weekends and drinks wine daily, denies taking any pain pills with tylenol in it, denies IVDU, was taking control up until a few months ago- suspect her fatty liver is due to a combination of obesity, ETOH consumption, Cymbalta, and control- will change her Cymbalta with Psych consult, and refer to GI -ppx c/u protonix BID while on steroids 8. Psych- pmh anxiety, cross tapering Cymbalta with Elavil out of concern for hepatotoxicity, discussed with psychiatry and consult placed, recs appreciate, c/u klonopin 9. Dispo: tbd Allergies Coded Allergies: No Known Allergies (Unverified , 06/04/17) Vital Signs Vital Signs Date Time Temp Pulse Resp B/P (MAP) Pulse Ox O2 Delivery O2 Flow Rate FiO2 03/17/19 14:00 97.2 99 18 128/75 (92) 97 Laboratory Data CBC/BMP Laboratory Tests 03/17/19 06:36 Red Blood Count 3.31 L, Mean Corpuscular Volume 106.3 H, Mean Corpuscular Hemoglobin 36.6 H, Mean Corpuscular Hemoglobin Concent 34.4, Red Cell Distribution Width 12.4 Labs 24H Laboratory Tests 2 03/17/19 06:36: Nucleated Red Blood Cells % (auto) 0.0 Current Medications Current Medications Current Medications Medications (Trade) Dose Ordered Sig/Dori Route PRN Reason Start Time Stop Time Status Last Admin Dose Admin Acetaminophen (Tylenol Tab) 650 mg Q4HP PRN PO fever/MILD PAIN (PS 1-4) 03/11/19 16:15 03/13/19 13:49 DC 03/13/19 10:31 Amitriptyline HCl (Elavil) 25 mg DAILY PO 03/23/19 09:00 03/23/19 09:01 Amitriptyline HCl (Elavil) 25 mg QHS PO 03/17/19 21:00 03/22/19 23:59 Amitriptyline HCl (Elavil) 50 mg QHS PO 03/23/19 21:00 Amlodipine Besylate (Norvasc) 5 mg DAILY PO 03/16/19 19:30 03/17/19 09:11 Bisacodyl (Dulcolax Suppository) 10 mg DAILYPRN PRN [place] CONSTIPATION 03/11/19 16:15 Clonazepam (KlonoPIN) 0.5 mg BID PO 03/11/19 21:00 03/17/19 09:12 Dextrose (Dextrose 50%) 25 ml ASDIRECTED PRN IV SEE LABEL COMMENTS 03/11/19 16:30 03/11/19 17:22 DC Docusate Sodium (Colace) 100 mg BID PO 03/11/19 21:00 03/17/19 09:11 Duloxetine HCl (Cymbalta) 30 mg DAILY PO 03/18/19 09:00 03/22/19 12:00 Duloxetine HCl (Cymbalta) 60 mg DAILY PO 03/12/19 09:00 03/17/19 14:46 DC 03/17/19 09:12 Enoxaparin Sodium (Lovenox) 40 mg DAILY SC 03/12/19 09:00 03/17/19 09:12 Folic Acid (Folic Acid) 5 mg DAILY PO 03/12/19 09:00 03/17/19 09:12 Gabapentin (Neurontin) 300 mg TID PO 03/11/19 21:00 03/17/19 16:57 Glucagon (Glucagon) 1 mg ASDIRECTED PRN SC SEE LABEL COMMENTS 03/11/19 16:30 03/11/19 17:22 DC Glucose (Glucose) 16 GM ASDIRECTED PRN PO SEE LABEL COMMENTS 03/11/19 16:30 03/11/19 17:22 DC Home Med (Med Rec Complete!) ASDIRECTED XX 03/11/19 17:45 03/11/19 17:49 DC Ibuprofen (Advil) 400 mg Q8HP PRN PO PAIN 03/15/19 12:00 03/17/19 14:46 DC 03/15/19 22:20 Insulin Human Lispro (HumaLOG INSULIN) SEE PROTOCOL TABLE AC SC 03/11/19 17:30 03/11/19 17:30 DC Lidocaine (Lidoderm Patch) 2 patch DAILY TD 03/12/19 09:00 03/17/19 09:11 Lisinopril (Prinivil) 10 mg DAILY PO 03/12/19 09:00 03/13/19 13:49 DC 03/13/19 10:32 Lisinopril (Prinivil) 20 mg DAILY PO 03/14/19 09:00 03/17/19 09:12 Magnesium Hydroxide (Milk Of Magnesia) 30 ml DAILYPRN PRN PO CONSTIPATION 03/11/19 16:15 Menthol/Methyl Salicylate (Bengay Cream) bilat calf, av... BID TOP 03/16/19 21:00 03/17/19 09:13 Non-Formulary Medication ( See Comment Field Below ) REMOVE LIDODERM PATCH DAILY@21 XX 03/12/19 21:00 03/16/19 22:00 Oxycodone HCl (Roxicodone, Oxyir) 2.5 mg Q4HP PRN PO PAIN 03/11/19 16:15 03/12/19 10:10 DC Pantoprazole Sodium (Protonix) 40 mg BID PO 03/13/19 21:00 03/17/19 09:12 Pantoprazole Sodium (Protonix) 40 mg DAILY PO 03/12/19 09:00 03/13/19 13:49 DC 03/13/19 10:32 Prednisone (Deltasone) 60 mg DAILY PO 03/17/19 09:00 03/17/19 09:12 Prednisone (Deltasone) 80 mg DAILY PO 03/12/19 09:00 03/16/19 23:00 DC 03/16/19 08:42 Senna (Senokot) 1 tab QHS PO 03/11/19 21:00 03/15/19 22:20 Tizanidine HCl (Zanaflex) 2 mg Q8HP PRN PO PAIN OR DISCOMFORT 03/11/19 16:15 03/15/19 01:51 DEBRA ARAIZA MD Mar 17, 2019 17:07
[2019-03-17 20:00] VITALS: BP 133/76
[2019-03-17] MEDS: SENNA 8.6 MG TAB (SENOKOT) PO SCH (21:24)
[2019-03-17] MEDS: AMITRIPTYLINE 25 MG TAB PO SCH (21:24)
[2019-03-17] MEDS: **NOTE PATIENT COMMENT** MISC XX SCH (21:25)
[2019-03-18 05:31] VITALS: BP 150/80
[2019-03-18 06:29] LABS: ALBUMIN 3.1 GM/DL (3.2-5.2); ALT/SGPT 109 U/L (12-78); BILIRUBIN,TOTAL 0.8 MG/DL (0.2-1.0); BLOOD UREA NITROGEN 15 MG/DL (7-18); CALCIUM LEVEL 9.1 MG/DL (8.5-10.1); CARBON DIOXIDE LEVEL 30 MEQ/L (21-32); CHLORIDE LEVEL 106 MEQ/L (98-107); CREATININE FOR GFR 0.48 MG/DL (0.55-1.30); GLOMERULAR FILTRATION RATE > 60.0 (>60); GLUCOSE, FASTING 80 MG/DL (70-100); POTASSIUM SERUM 3.8 MEQ/L (3.5-5.1); SODIUM LEVEL 139 MEQ/L (136-145); TOTAL PROTEIN 5.7 GM/DL (6.4-8.2)
[2019-03-18] MEDS: FOLIC ACID 1 MG TAB PO SCH (08:47)
[2019-03-18] MEDS: ANALGESIC BALM CRM 120 GM TOP SCH ×2 (08:47→20:32)
[2019-03-18] MEDS: DOCUSATE SODIUM 100 MG CAP PO SCH ×2 (08:47→20:31)
[2019-03-18] MEDS: predniSONE 20 MG TAB PO SCH (08:47)
[2019-03-18] MEDS: LIDOCAINE 5% (LIDODERM) PATCH TD SCH (08:47)
[2019-03-18] MEDS: clonazePAM 0.5 MG TAB PO SCH ×2 (08:47→20:31)
[2019-03-18] MEDS: ENOXAPARIN 40 MG/0.4 ML SYRINGE (J1650) SC SCH (08:47)
[2019-03-18] MEDS: DULoxetine 30 MG CAP (CYMBALTA) PO SCH (08:48)
[2019-03-18] MEDS: amLODIPine 5 MG TAB PO SCH ×2 (08:48→22:59)
[2019-03-18] MEDS: PANTOPRAZOLE 40MG TAB (PROTONIX) PO SCH ×2 (08:48→20:31)
[2019-03-18] MEDS: LISINOPRIL 20 MG TAB PO SCH (08:48)
[2019-03-18] MEDS: GABAPENTIN 300 MG CAP PO SCH ×3 (08:48→20:31)
--- NOTE | 2019-03-18 11:07 | IPNPDOC ---
PM&R Progress Note DATE OF SERVICE: Mar 18, 2019 Casework Manager Progress Note Subjective: Patient concerned her left ankle and calf are more swollen today. She denies any worsening pain. REVIEW OF SYSTEMS: The following is a completed review of systems and has been reviewed. Review of systems otherwise unremarkable. PAIN: Patient self reports bilateral calf cramping and aching sensation in her feet EYES: No recent vision changes EARS, NOSE, & THROAT: No throat pain, or dysphagia, or rhinorrhea CARDIOVASCULAR: Denies chest pain or palpitations PULMONARY: Denies shortness of breath GASTROINTESTINAL: Denies constipation/diarrhea GENITOURINARY: denies dysuria MUSCULOSKELETAL: bilateral UE and LE weakness NEUROLOGICAL:paresthesias with left wrist drop and bilateral foot drop SKIN: right antecubital ecchymosis PSYCHIATRIC: +anxious All other review of systems found to be negative. PHYSICAL EXAMINATION: VITAL SIGNS: Please see below. GENERAL: Pleasant and cooperative. No acute distress. anxious appearing HEENT: PERRL. Extraocular movements intact. Clear conjunctiva CARDIOVASCULAR: Regular rate and rhythm. No murmurs, rubs, or gallops LUNGS: Clear to auscultation bilaterally. No wheezes. No rhonchi ABDOMEN: Soft, nontender, nondistended. Positive bowel sounds. Normal active bowel sounds NEUROLOGICAL: Alert and oriented times three. Cranial nerves II through XII grossly intact. Sensation slightly decreased to light touch bilat LE in non- dermatomal fashion, dorsum of left hand depressed reflexes throughout EXTREMITIES: 4/5 bilateral elbow flexors, abduction, elbow extension, 3/5 right wrist extension, 0/5 left wrist extension, 4/5 bilat hip flexors, 3/5 knee extensors, ankle DF and EHL mild bilateral foot and calf edema slightly worse on the left, (left ankle non tender to palpation, no instability) SKIN: left posterior calf incision without induration or erythema ASSESSMENT:23-year-old F with past medical history of anxiety who presents status post acute onset of paresthesias and weakness diagnosed with mononeuritis multiplex PLAN: 1. Rehab: PT- strengthen/stretch/maintain ROM bilat LE, improve ambulation tolerance and endurance, better standing tolerance, able to propel own wheelchai r OT-PT- strengthen/stretch/maintain ROM bilat UE, utilize resting wrist splints bilat, ok to use Estim 2. Cardio: patient with elevated BPS, will start on lisinopril, medicine consulted to assist in management 3. Resp: encourgae incentive spirometry 4. Neuro: mononeuritis multiplex with left wrist drop, bilateral partial foot drop, neuropathic pain and difficulty bearing weight- c/u prednisone, autoimmune w/u and sural nerve bx results pending, will follow-up with [facility] on discharge -etiology unknown, however on high dose folate 5mg daily for deficiency and elevated homocysteinemia 5. Pain: avoid Tylenol in setting of elevated liver enzymes, c/u gabapentin, and menthol salicylate, started on Elavil for mood disorder which should assist with neuropathic pain 6. DVT ppx: Lovenox, dopplers negative 7. GI: elevated ALT/AST on admission trending down, most likely due to combination of obesity, heavy ETOH consumption, Cymbalta, and control- - Liver US showing, "Echogenic liver, suggesting fatty infiltration and/or fibrosis.", will refer to GI as outpatient, patient counseled on dangers of excessive ETOH intake -ppx c/u protonix BID while on steroids 8. Psych- pmh anxiety, cross tapering Cymbalta with Elavil out of concern for hepatotoxicity, discussed with psychiatry and consult placed, recs appreciate, c/u klonopin 9. Orhto: left ankle mild swelling in setting of recent fall, Xray on admission negative for fracture, however suspicious for ligamental injury, will acewrap 10. Dispo:03/30/19 to home at wheelchair level, slowly progressing towards goals Allergies Coded Allergies: No Known Allergies (Unverified , 06/04/17) Vital Signs Vital Signs Date Time Temp Pulse Resp B/P (MAP) Pulse Ox O2 Delivery O2 Flow Rate FiO2 03/18/19 08:48 87 150/80 03/18/19 05:31 97.9 18 95 Laboratory Data CBC/BMP Laboratory Tests 03/18/19 05:18 Calcium Level 9.1, Aspartate Amino Transf (AST/SGOT) 15, Alanine Aminotransferase (ALT/SGPT) 109 H, Alkaline Phosphatase 55, Total Bilirubin 0.8, Total Protein 5.7 L, Albumin 3.1 L Labs 24H Laboratory Tests 2 03/18/19 05:18: Anion Gap 3L, Glomerular Filtration Rate > 60.0, Blood Urea Nitrogen 15, Creatinine 0.48L, Sodium Level 139, Potassium Level 3.8, Chloride Level 106, Carbon Dioxide Level 30, Calcium Level 9.1, Aspartate Amino Transf (AST/SGOT) 15, Alanine Aminotransferase (ALT/SGPT) 109H, Alkaline Phosphatase 55, Total Bilirubin 0.8, Total Protein 5.7L, Albumin 3.1L, Albumin/Globulin Ratio 1.19 Current Medications Current Medications Current Medications Medications (Trade) Dose Ordered Sig/Dori Route PRN Reason Start Time Stop Time Status Last Admin Dose Admin Acetaminophen (Tylenol Tab) 650 mg Q4HP PRN PO fever/MILD PAIN (PS 1-4) 03/11/19 16:15 03/13/19 13:49 DC 03/13/19 10:31 Amitriptyline HCl (Elavil) 25 mg DAILY PO 03/23/19 09:00 03/23/19 09:01 Amitriptyline HCl (Elavil) 25 mg QHS PO 03/17/19 21:00 03/22/19 23:59 03/17/19 21:24 Amitriptyline HCl (Elavil) 50 mg QHS PO 03/23/19 21:00 Amlodipine Besylate (Norvasc) 5 mg DAILY PO 03/16/19 19:30 03/18/19 08:48 Bisacodyl (Dulcolax Suppository) 10 mg DAILYPRN PRN [place] CONSTIPATION 03/11/19 16:15 Clonazepam (KlonoPIN) 0.5 mg BID PO 03/11/19 21:00 03/18/19 08:47 Dextrose (Dextrose 50%) 25 ml ASDIRECTED PRN IV SEE LABEL COMMENTS 03/11/19 16:30 03/11/19 17:22 DC Docusate Sodium (Colace) 100 mg BID PO 03/11/19 21:00 03/18/19 08:47 Duloxetine HCl (Cymbalta) 30 mg DAILY PO 03/18/19 09:00 03/22/19 12:00 03/18/19 08:48 Duloxetine HCl (Cymbalta) 60 mg DAILY PO 03/12/19 09:00 03/17/19 14:46 DC 03/17/19 09:12 Enoxaparin Sodium (Lovenox) 40 mg DAILY SC 03/12/19 09:00 03/18/19 08:47 Folic Acid (Folic Acid) 5 mg DAILY PO 03/12/19 09:00 03/18/19 08:47 Gabapentin (Neurontin) 300 mg TID PO 03/11/19 21:00 03/18/19 08:48 Glucagon (Glucagon) 1 mg ASDIRECTED PRN SC SEE LABEL COMMENTS 03/11/19 16:30 03/11/19 17:22 DC Glucose (Glucose) 16 GM ASDIRECTED PRN PO SEE LABEL COMMENTS 03/11/19 16:30 03/11/19 17:22 DC Home Med (Med Rec Complete!) ASDIRECTED XX 03/11/19 17:45 03/11/19 17:49 DC Ibuprofen (Advil) 400 mg Q8HP PRN PO PAIN 03/15/19 12:00 03/17/19 14:46 DC 03/15/19 22:20 Insulin Human Lispro (HumaLOG INSULIN) SEE PROTOCOL TABLE AC SC 03/11/19 17:30 03/11/19 17:30 DC Lidocaine (Lidoderm Patch) 2 patch DAILY TD 03/12/19 09:00 03/18/19 08:47 Lisinopril (Prinivil) 10 mg DAILY PO 03/12/19 09:00 03/13/19 13:49 DC 03/13/19 10:32 Lisinopril (Prinivil) 20 mg DAILY PO 03/14/19 09:00 03/18/19 08:48 Magnesium Hydroxide (Milk Of Magnesia) 30 ml DAILYPRN PRN PO CONSTIPATION 03/11/19 16:15 Menthol/Methyl Salicylate (Bengay Cream) bilat calf, av... BID TOP 03/16/19 21:00 03/18/19 08:47 Non-Formulary Medication ( See Comment Field Below ) REMOVE LIDODERM PATCH DAILY@21 XX 03/12/19 21:00 03/17/19 21:25 Oxycodone HCl (Roxicodone, Oxyir) 2.5 mg Q4HP PRN PO PAIN 03/11/19 16:15 03/12/19 10:10 DC Pantoprazole Sodium (Protonix) 40 mg BID PO 03/13/19 21:00 03/18/19 08:48 Pantoprazole Sodium (Protonix) 40 mg DAILY PO 03/12/19 09:00 03/13/19 13:49 DC 03/13/19 10:32 Prednisone (Deltasone) 60 mg DAILY PO 03/17/19 09:00 03/18/19 08:47 Prednisone (Deltasone) 80 mg DAILY PO 03/12/19 09:00 03/16/19 23:00 DC 03/16/19 08:42 Senna (Senokot) 1 tab QHS PO 03/11/19 21:00 03/17/19 21:24 Tizanidine HCl (Zanaflex) 2 mg Q8HP PRN PO PAIN OR DISCOMFORT 03/11/19 16:15 03/15/19 01:51 DEBRA ARAIZA MD Mar 18, 2019 11:07
[2019-03-18 14:00] VITALS: BP 132/68
[2019-03-18] MEDS: SENNA 8.6 MG TAB (SENOKOT) PO SCH (20:31)
[2019-03-18] MEDS: AMITRIPTYLINE 25 MG TAB PO SCH (20:31)
[2019-03-18] MEDS: **NOTE PATIENT COMMENT** MISC XX SCH (20:32)
[2019-03-18 21:17] VITALS: BP 153/83
--- NOTE | 2019-03-18 21:58 | IPNPDOC ---
Text Note Date of Service The patient was seen on 03/18/19. NOTE Subjective: Patient has been seen and examined in the room. No any acute events overnight. Objective: General: NAD, female on wheelchair HEENT: PERRLA, EOMI Lungs: Clear to auscultation CV S1 and S2 Abdomen: Nontender, nondistended Extremities: Bilateral edema +1 lower extremities Neuro: Cranial nerves from 2-12 intact, no nuchal rigidity A/P Patient is 23 years old female with past medical history of mononeuritis multiplex Patient's systolic blood pressure elevated in the range of 150s Recommend to increase the dose of amlodipine to 10 mg. VS,Fishbone, I+O VS, Fishbone, I+O Laboratory Tests 03/18/19 05:18 Calcium Level 9.1, Aspartate Amino Transf (AST/SGOT) 15, Alanine Aminotransferase (ALT/SGPT) 109 H, Alkaline Phosphatase 55, Total Bilirubin 0.8, Total Protein 5.7 L, Albumin 3.1 L Vital Signs Date Time Temp Pulse Resp B/P (MAP) Pulse Ox O2 Delivery O2 Flow Rate FiO2 03/18/19 21:17 97.5 101 18 153/83 (106) 96 I&O- Last 24 Hours up to 6 AM 03/18/19 06:00 Intake Total 920 ml Balance 920 ml DALIA SAUCEDA DO Mar 18, 2019 21:58
[2019-03-19 05:55] VITALS: BP 138/74
[2019-03-19] MEDS: DULoxetine 30 MG CAP (CYMBALTA) PO SCH (08:22)
[2019-03-19] MEDS: predniSONE 20 MG TAB PO SCH (08:22)
[2019-03-19] MEDS: DOCUSATE SODIUM 100 MG CAP PO SCH ×2 (08:22→20:37)
[2019-03-19] MEDS: FOLIC ACID 1 MG TAB PO SCH (08:22)
[2019-03-19] MEDS: clonazePAM 0.5 MG TAB PO SCH ×2 (08:23→20:37)
[2019-03-19] MEDS: PANTOPRAZOLE 40MG TAB (PROTONIX) PO SCH ×2 (08:23→20:37)
[2019-03-19] MEDS: GABAPENTIN 300 MG CAP PO SCH ×3 (08:23→20:39)
[2019-03-19] MEDS: ENOXAPARIN 40 MG/0.4 ML SYRINGE (J1650) SC SCH (08:26)
[2019-03-19] MEDS: LIDOCAINE 5% (LIDODERM) PATCH TD SCH (08:27)
[2019-03-19] MEDS: ANALGESIC BALM CRM 120 GM TOP SCH ×2 (08:27→20:45)
[2019-03-19] MEDS: amLODIPine 5 MG TAB PO SCH (08:29)
[2019-03-19] MEDS: LISINOPRIL 20 MG TAB PO SCH (08:29)
--- NOTE | 2019-03-19 10:08 | IPNPDOC ---
PM&R Progress Note DATE OF SERVICE: Mar 19, 2019 Research Statistician Progress Note Subjective: Patient reporting the other day she got worsening numbness and and tingling following administration of gabapentin, but that this did not happen today. She was encouraged to wear night wrist splints for likley median nerve injury due to increase wrsit flexion in setting of know radial nerve injury. REVIEW OF SYSTEMS: The following is a completed review of systems and has been reviewed. Review of systems otherwise unremarkable. PAIN: Patient self reports bilateral calf cramping and aching sensation in her feet EYES: No recent vision changes EARS, NOSE, & THROAT: No throat pain, or dysphagia, or rhinorrhea CARDIOVASCULAR: Denies chest pain or palpitations PULMONARY: Denies shortness of breath GASTROINTESTINAL: Denies constipation/diarrhea GENITOURINARY: denies dysuria MUSCULOSKELETAL: bilateral UE and LE weakness NEUROLOGICAL:paresthesias with left wrist drop and bilateral foot drop SKIN: right antecubital ecchymosis PSYCHIATRIC: +anxious All other review of systems found to be negative. PHYSICAL EXAMINATION: VITAL SIGNS: Please see below. GENERAL: Pleasant and cooperative. No acute distress. anxious appearing HEENT: PERRL. Extraocular movements intact. Clear conjunctiva CARDIOVASCULAR: Regular rate and rhythm. No murmurs, rubs, or gallops LUNGS: Clear to auscultation bilaterally. No wheezes. No rhonchi ABDOMEN: Soft, nontender, nondistended. Positive bowel sounds. Normal active bowel sounds NEUROLOGICAL: Alert and oriented times three. Cranial nerves II through XII grossly intact. Sensation slightly decreased to light touch bilat LE in non- dermatomal fashion, dorsum of left hand depressed reflexes throughout EXTREMITIES: 4/5 bilateral elbow flexors, abduction, elbow extension, 3/5 right wrist extension, 0/5 left wrist extension, 4/5 bilat hip flexors, 3/5 knee extensors, ankle DF and EHL mild bilateral foot and calf edema slightly worse on the left, (left ankle non tender to palpation, no instability) SKIN: left posterior calf incision without induration or erythema ASSESSMENT:23-year-old F with past medical history of anxiety who presents status post acute onset of paresthesias and weakness diagnosed with mononeuritis multiplex PLAN: 1. Rehab: PT- strengthen/stretch/maintain ROM bilat LE, improve ambulation tolerance and endurance, better standing tolerance, able to propel own wheelchair OT- strengthen/stretch/maintain ROM bilat UE, utilize resting wrist splints bilat, ok to use Estim, splint bilateral wrsits at night to prevent CTSin setting of wrist drop 2. Cardio: patient with elevated BPS, will start on lisinopril, medicine consulted to assist in management 3. Resp: encourgae incentive spirometry 4. Neuro: mononeuritis multiplex with left wrist drop and right wrist extension weakness, bilateral partial foot drop, neuropathic pain and difficulty bearing weight improving- c/u prednisone, autoimmune w/u and sural nerve bx results pending, will follow-up with [facility] neuro on discharge -etiology unknown, however on high dose folate 5mg daily for deficiency and elevated homocysteinemia 5. Pain: avoid Tylenol in setting of elevated liver enzymes, c/u gabapentin and consider lowering dose if patient experiencing worsening paresthesias with this although difficult to say if this is the case given inconsistencies in time of dosage and symptoms onset -c/u menthol salicylate, started on Elavil for mood disorder which should assist with neuropathic pain 6. DVT ppx: Lovenox, dopplers negative 7. GI: elevated ALT/AST on admission trending down, most likely due to combination of obesity, heavy ETOH consumption, Cymbalta, and control- - Liver US showing, "Echogenic liver, suggesting fatty infiltration and/or fibrosis.", will refer to GI as outpatient, patient counseled on dangers of excessive ETOH intake -ppx c/u protonix BID while on steroids 8. Psych- pmh anxiety, cross tapering Cymbalta with Elavil out of concern for hepatotoxicity, discussed with psychiatry and consult placed, recs appreciate, c/u klonopin 9. Orhto: left ankle mild swelling in setting of recent fall, Xray on admission negative for fracture, however suspicious for ligamental injury, will acewrap 10. Dispo:03/30/19 to home at wheelchair level, slowly progressing towards goals Allergies Coded Allergies: No Known Allergies (Unverified , 06/04/17) Vital Signs Vital Signs Date Time Temp Pulse Resp B/P (MAP) Pulse Ox O2 Delivery O2 Flow Rate FiO2 03/19/19 08:29 124 158/98 03/19/19 05:55 97.8 18 98 Current Medications Current Medications Current Medications Medications (Trade) Dose Ordered Sig/Dori Route PRN Reason Start Time Stop Time Status Last Admin Dose Admin Acetaminophen (Tylenol Tab) 650 mg Q4HP PRN PO fever/MILD PAIN (PS 1-4) 03/11/19 16:15 03/13/19 13:49 DC 03/13/19 10:31 Amitriptyline HCl (Elavil) 25 mg DAILY PO 03/23/19 09:00 03/23/19 09:01 Amitriptyline HCl (Elavil) 25 mg QHS PO 03/17/19 21:00 03/22/19 23:59 03/18/19 20:31 Amitriptyline HCl (Elavil) 50 mg QHS PO 03/23/19 21:00 Amlodipine Besylate (Norvasc) 5 mg DAILY PO 03/16/19 19:30 03/18/19 22:02 DC 03/18/19 08:48 Amlodipine Besylate (Norvasc) 10 mg DAILY PO 03/18/19 22:06 03/19/19 08:29 Bisacodyl (Dulcolax Suppository) 10 mg DAILYPRN PRN [place] CONSTIPATION 03/11/19 16:15 Clonazepam (KlonoPIN) 0.5 mg BID PO 03/11/19 21:00 03/19/19 08:23 Dextrose (Dextrose 50%) 25 ml ASDIRECTED PRN IV SEE LABEL COMMENTS 03/11/19 16:30 03/11/19 17:22 DC Docusate Sodium (Colace) 100 mg BID PO 03/11/19 21:00 03/19/19 08:22 Duloxetine HCl (Cymbalta) 30 mg DAILY PO 03/18/19 09:00 03/22/19 12:00 03/19/19 08:22 Duloxetine HCl (Cymbalta) 60 mg DAILY PO 03/12/19 09:00 03/17/19 14:46 DC 03/17/19 09:12 Enoxaparin Sodium (Lovenox) 40 mg DAILY SC 03/12/19 09:00 03/19/19 08:26 Folic Acid (Folic Acid) 5 mg DAILY PO 03/12/19 09:00 03/19/19 08:22 Gabapentin (Neurontin) 300 mg TID PO 03/11/19 21:00 03/19/19 08:23 Glucagon (Glucagon) 1 mg ASDIRECTED PRN SC SEE LABEL COMMENTS 03/11/19 16:30 03/11/19 17:22 DC Glucose (Glucose) 16 GM ASDIRECTED PRN PO SEE LABEL COMMENTS 03/11/19 16:30 03/11/19 17:22 DC Home Med (Med Rec Complete!) ASDIRECTED XX 03/11/19 17:45 03/11/19 17:49 DC Ibuprofen (Advil) 400 mg Q8HP PRN PO PAIN 03/15/19 12:00 03/17/19 14:46 DC 03/15/19 22:20 Insulin Human Lispro (HumaLOG INSULIN) SEE PROTOCOL TABLE AC SC 03/11/19 17:30 03/11/19 17:30 DC Lidocaine (Lidoderm Patch) 2 patch DAILY TD 03/12/19 09:00 03/19/19 08:27 Lisinopril (Prinivil) 10 mg DAILY PO 03/12/19 09:00 03/13/19 13:49 DC 03/13/19 10:32 Lisinopril (Prinivil) 20 mg DAILY PO 03/14/19 09:00 03/19/19 08:29 Magnesium Hydroxide (Milk Of Magnesia) 30 ml DAILYPRN PRN PO CONSTIPATION 03/11/19 16:15 Menthol/Methyl Salicylate (Bengay Cream) bilat calf, av... BID TOP 03/16/19 21:00 03/19/19 08:27 Non-Formulary Medication ( See Comment Field Below ) REMOVE LIDODERM PATCH DAILY@21 XX 03/12/19 21:00 03/18/19 20:32 Oxycodone HCl (Roxicodone, Oxyir) 2.5 mg Q4HP PRN PO PAIN 03/11/19 16:15 03/12/19 10:10 DC Pantoprazole Sodium (Protonix) 40 mg BID PO 03/13/19 21:00 03/19/19 08:23 Pantoprazole Sodium (Protonix) 40 mg DAILY PO 03/12/19 09:00 03/13/19 13:49 DC 03/13/19 10:32 Prednisone (Deltasone) 60 mg DAILY PO 03/17/19 09:00 03/19/19 08:22 Prednisone (Deltasone) 80 mg DAILY PO 03/12/19 09:00 03/16/19 23:00 DC 03/16/19 08:42 Senna (Senokot) 1 tab QHS PO 03/11/19 21:00 03/18/19 20:31 Tizanidine HCl (Zanaflex) 2 mg Q8HP PRN PO PAIN OR DISCOMFORT 03/11/19 16:15 03/18/19 11:00 DC 03/15/19 01:51 DEBRA ARAIZA MD Mar 19, 2019 10:07
[2019-03-19 10:24] VITALS: BP 129/72
[2019-03-19] MEDS: METOPROLOL TART 25 MG TABLET PO SCH ×2 (10:28→20:38)
[2019-03-19 20:00] VITALS: BP 127/77
[2019-03-19] MEDS: SENNA 8.6 MG TAB (SENOKOT) PO SCH (20:37)
[2019-03-19] MEDS: AMITRIPTYLINE 25 MG TAB PO SCH (20:42)
[2019-03-19] MEDS: **NOTE PATIENT COMMENT** MISC XX SCH (20:46)
[2019-03-20 06:00] VITALS: BP 138/72
[2019-03-20 06:11] LABS: HEMATOCRIT 33.7 % (36.0-47.0); HEMOGLOBIN 11.5 g/dl (12.0-15.5); MEAN CORPUSCULAR HEMOGLOBIN 35.1 pg (27.0-33.0); MEAN CORPUSCULAR HGB CONC 34.1 g/dl (32.0-36.5); MEAN CORPUSCULAR VOLUME 102.7 fl (80.0-96.0); PLATELET COUNT, AUTOMATED 263 10^3/uL (150-450); RED BLOOD COUNT 3.28 10^6/uL (4.00-5.40); WHITE BLOOD COUNT 14.3 10^3/uL (4.0-10.0)
[2019-03-20] MEDS: clonazePAM 0.5 MG TAB PO SCH ×2 (09:26→21:10)
[2019-03-20] MEDS: FOLIC ACID 1 MG TAB PO SCH (09:26)
[2019-03-20] MEDS: predniSONE 20 MG TAB PO SCH (09:26)
[2019-03-20] MEDS: DULoxetine 30 MG CAP (CYMBALTA) PO SCH (09:27)
[2019-03-20] MEDS: PANTOPRAZOLE 40MG TAB (PROTONIX) PO SCH ×2 (09:27→21:10)
[2019-03-20] MEDS: DOCUSATE SODIUM 100 MG CAP PO SCH ×2 (09:27→21:10)
[2019-03-20] MEDS: GABAPENTIN 300 MG CAP PO SCH (09:27)
[2019-03-20] MEDS: ENOXAPARIN 40 MG/0.4 ML SYRINGE (J1650) SC SCH (09:27)
[2019-03-20] MEDS: LIDOCAINE 5% (LIDODERM) PATCH TD SCH (09:28)
[2019-03-20] MEDS: METOPROLOL TART 25 MG TABLET PO SCH ×2 (09:31→21:11)
[2019-03-20] MEDS: LISINOPRIL 20 MG TAB PO SCH (09:32)
[2019-03-20] MEDS: ANALGESIC BALM CRM 120 GM TOP SCH ×2 (09:32→21:11)
[2019-03-20 14:00] VITALS: BP 128/66
[2019-03-20] MEDS: GABAPENTIN 100 MG CAP PO SCH ×2 (16:52→21:10)
--- NOTE | 2019-03-20 17:11 | IPNPDOC ---
Text Note Date of Service The patient was seen on 03/20/19. NOTE Subjective: Patient has been seen and examined in the room. No any acute events overnight. Patient complains of some legs soreness after physical exercise Objective: General: NAD, female on wheelchair HEENT: PERRLA, EOMI Lungs: Clear to auscultation CV S1 and S2 Abdomen: Nontender, nondistended Extremities: Bilateral edema +1 lower extremities Neuro: Cranial nerves from 2-12 intact, no nuchal rigidity A/P 23-year-old F with past medical history of anxiety who presents status post acute onset of paresthesias and weakness diagnosed with mononeuritis multiplex Patient is 23 years old female with past medical history of mononeuritis multiplex Agreed with added beta blockers in order to control blood pressure VS,Fishbone, I+O VS, Fishbone, I+O Laboratory Tests 03/20/19 05:47 Red Blood Count 3.28 L, Mean Corpuscular Volume 102.7 H, Mean Corpuscular Hemoglobin 35.1 H, Mean Corpuscular Hemoglobin Concent 34.1, Red Cell Distribution Width 11.8 Vital Signs Date Time Temp Pulse Resp B/P (MAP) Pulse Ox O2 Delivery O2 Flow Rate FiO2 03/20/19 14:00 97.1 93 18 128/66 (86) 95 I&O- Last 24 Hours up to 6 AM 03/20/19 05:59 Intake Total 1200 ml Balance 1200 ml DAILA SAUCEDA DO Mar 20, 2019 17:11
[2019-03-20 20:00] VITALS: BP 153/77
[2019-03-20] MEDS: AMITRIPTYLINE 25 MG TAB PO SCH (21:10)
[2019-03-20] MEDS: SENNA 8.6 MG TAB (SENOKOT) PO SCH (21:10)
[2019-03-20] MEDS: **NOTE PATIENT COMMENT** MISC XX SCH (21:11)
[2019-03-21 06:00] VITALS: BP 143/85
[2019-03-21] MEDS: ENOXAPARIN 40 MG/0.4 ML SYRINGE (J1650) SC SCH (09:06)
[2019-03-21] MEDS: GABAPENTIN 100 MG CAP PO SCH ×3 (09:06→21:04)
[2019-03-21] MEDS: clonazePAM 0.5 MG TAB PO SCH ×2 (09:07→21:04)
[2019-03-21] MEDS: PANTOPRAZOLE 40MG TAB (PROTONIX) PO SCH ×2 (09:07→21:05)
[2019-03-21] MEDS: DULoxetine 30 MG CAP (CYMBALTA) PO SCH (09:07)
[2019-03-21] MEDS: predniSONE 20 MG TAB PO SCH (09:07)
[2019-03-21] MEDS: FOLIC ACID 1 MG TAB PO SCH (09:07)
[2019-03-21] MEDS: DOCUSATE SODIUM 100 MG CAP PO SCH ×2 (09:07→21:04)
[2019-03-21] MEDS: LIDOCAINE 5% (LIDODERM) PATCH TD SCH (09:08)
[2019-03-21] MEDS: ANALGESIC BALM CRM 120 GM TOP SCH ×2 (09:09→21:09)
[2019-03-21] MEDS: LISINOPRIL 20 MG TAB PO SCH (09:10)
[2019-03-21] MEDS: METOPROLOL TART 25 MG TABLET PO SCH ×2 (09:11→21:04)
[2019-03-21 14:00] VITALS: BP 131/77
[2019-03-21 19:59] VITALS: BP 140/96
[2019-03-21] MEDS: SENNA 8.6 MG TAB (SENOKOT) PO SCH (21:05)
[2019-03-21] MEDS: **NOTE PATIENT COMMENT** MISC XX SCH (21:11)
[2019-03-21] MEDS: AMITRIPTYLINE 25 MG TAB PO SCH (21:21)
[2019-03-22 06:00] VITALS: BP 144/96
[2019-03-22 07:52] LABS: BASO % 0.2 % (0.0-1.0); EOS % 0.2 % (0.0-3.0); HEMATOCRIT 33.6 % (36.0-47.0); HEMOGLOBIN 11.5 g/dl (12.0-15.5); LYMPH # 3.5 10^3/uL (1.5-5.0); LYMPH % 28.3 % (24.0-44.0); MEAN CORPUSCULAR HEMOGLOBIN 36.3 pg (27.0-33.0); MEAN CORPUSCULAR HGB CONC 34.2 g/dl (32.0-36.5); MONO # 0.8 10^3/uL (0.0-0.8); MONO % 6.7 % (0.0-5.0); NEUTROPHILS # 7.8 10^3/uL (1.5-8.5); NEUTROPHILS % 63.4 % (36.0-66.0); PLATELET COUNT, AUTOMATED 247 10^3/uL (150-450); RED BLOOD COUNT 3.17 10^6/uL (4.00-5.40); WHITE BLOOD COUNT 12.3 10^3/uL (4.0-10.0)
[2019-03-22 08:16] LABS: BLOOD UREA NITROGEN 15 MG/DL (7-18); CALCIUM LEVEL 8.6 MG/DL (8.5-10.1); CARBON DIOXIDE LEVEL 27 MEQ/L (21-32); CHLORIDE LEVEL 109 MEQ/L (98-107); CREATININE FOR GFR 0.53 MG/DL (0.55-1.30); GLOMERULAR FILTRATION RATE > 60.0 (>60); GLUCOSE, FASTING 88 MG/DL (70-100); POTASSIUM SERUM 3.6 MEQ/L (3.5-5.1); SODIUM LEVEL 142 MEQ/L (136-145)
[2019-03-22] MEDS: DOCUSATE SODIUM 100 MG CAP PO SCH ×2 (09:00→20:03)
[2019-03-22] MEDS: LIDOCAINE 5% (LIDODERM) PATCH TD SCH (09:13)
[2019-03-22] MEDS: GABAPENTIN 100 MG CAP PO SCH ×3 (09:14→20:04)
[2019-03-22] MEDS: LISINOPRIL 20 MG TAB PO SCH (09:15)
[2019-03-22] MEDS: predniSONE 20 MG TAB PO SCH (09:15)
[2019-03-22] MEDS: DULoxetine 30 MG CAP (CYMBALTA) PO SCH (09:15)
[2019-03-22] MEDS: clonazePAM 0.5 MG TAB PO SCH ×2 (09:15→20:03)
[2019-03-22] MEDS: PANTOPRAZOLE 40MG TAB (PROTONIX) PO SCH ×2 (09:16→20:04)
[2019-03-22] MEDS: ENOXAPARIN 40 MG/0.4 ML SYRINGE (J1650) SC SCH (09:16)
[2019-03-22] MEDS: FOLIC ACID 1 MG TAB PO SCH (09:16)
[2019-03-22] MEDS: METOPROLOL TART 25 MG TABLET PO SCH ×2 (09:16→20:04)
[2019-03-22] MEDS: ANALGESIC BALM CRM 120 GM TOP SCH ×2 (09:17→20:04)
[2019-03-22 14:00] VITALS: BP 121/63
[2019-03-22 20:00] VITALS: BP 128/70
[2019-03-22] MEDS: SENNA 8.6 MG TAB (SENOKOT) PO SCH (20:03)
[2019-03-22] MEDS: AMITRIPTYLINE 25 MG TAB PO SCH (20:04)
[2019-03-22] MEDS: **NOTE PATIENT COMMENT** MISC XX SCH (20:09)
--- NOTE | 2019-03-22 21:46 | IPNPDOC ---
Text Note Date of Service The patient was seen on 03/22/19. NOTE Subjective: Patient has been seen and examined in the room. No any acute events overnight. Patient complains of some legs swelling Objective: General: NAD, female on wheelchair HEENT: PERRLA, EOMI Lungs: Clear to auscultation CV S1 and S2 Abdomen: Nontender, nondistended Extremities: Bilateral edema +1 lower extremities Neuro: Cranial nerves from 2-12 intact, no nuchal rigidity A/P 23-year-old F with past medical history of anxiety who presents status post acute onset of paresthesias and weakness diagnosed with mononeuritis multiplex Patient is 23 years old female with past medical history of mononeuritis multiplex Agreed with added beta blockers in order to control blood pressure. Blood pressure is under control I explained to the patient that legs swelling could be associated with steroids. Await result of muscle biopsy VS, Fishbone, I+O VS,Fishbone, I+O VS, Fishbone, I+O Laboratory Tests 03/22/19 07:17 Red Blood Count 3.17 L, Mean Corpuscular Volume 106.0 H, Mean Corpuscular Hemoglobin 36.3 H, Mean Corpuscular Hemoglobin Concent 34.2, Red Cell Distribution Width 12.0, Neutrophils (%) (Auto) 63.4, Lymphocytes (%) (Auto) 28.3, Monocytes (%) (Auto) 6.7 H, Eosinophils (%) (Auto) 0.2, Basophils (%) (Auto) 0.2, Neutrophils # (Auto) 7.8, Lymphocytes # (Auto) 3.5, Monocytes # (Auto) 0.8, Eosinophils # (Auto) 0.0, Basophils # (Auto) 0.0, Calcium Level 8.6 Vital Signs Date Time Temp Pulse Resp B/P (MAP) Pulse Ox O2 Delivery O2 Flow Rate FiO2 03/22/19 20:04 100 128/70 03/22/19 20:00 97.7 18 98 I&O- Last 24 Hours up to 6 AM 03/22/19 05:59 Intake Total 800 ml Output Total 0 ml Balance 800 ml DALIA SACUEDA DO Mar 22, 2019 21:45
[2019-03-23 05:30] VITALS: BP 141/89
[2019-03-23 07:23] LABS: HEMATOCRIT 36.4 % (36.0-47.0); HEMOGLOBIN 12.5 g/dl (12.0-15.5); MEAN CORPUSCULAR HGB CONC 34.3 g/dl (32.0-36.5); MEAN CORPUSCULAR VOLUME 104.9 fl (80.0-96.0); PLATELET COUNT, AUTOMATED 278 10^3/uL (150-450); RED BLOOD COUNT 3.47 10^6/uL (4.00-5.40); WHITE BLOOD COUNT 14.6 10^3/uL (4.0-10.0)
[2019-03-23] MEDS ORDERED: AMITRIPTYLINE 25 MG TAB PO SCH (09:00)
[2019-03-23] MEDS ORDERED: THIAMINE 100 MG TAB PO SCH (09:00)
[2019-03-23] MEDS: clonazePAM 0.5 MG TAB PO SCH ×2 (09:06→21:33)
[2019-03-23] MEDS: predniSONE 20 MG TAB PO SCH (09:16)
[2019-03-23] MEDS: DOCUSATE SODIUM 100 MG CAP PO SCH ×2 (09:16→21:33)
[2019-03-23] MEDS: FOLIC ACID 1 MG TAB PO SCH (09:17)
[2019-03-23] MEDS: GABAPENTIN 100 MG CAP PO SCH ×3 (09:17→21:33)
[2019-03-23] MEDS: LISINOPRIL 20 MG TAB PO SCH (09:17)
[2019-03-23] MEDS: PANTOPRAZOLE 40MG TAB (PROTONIX) PO SCH ×2 (09:17→21:33)
[2019-03-23] MEDS: METOPROLOL TART 25 MG TABLET PO SCH ×3 (09:18→21:33)
[2019-03-23] MEDS: LIDOCAINE 5% (LIDODERM) PATCH TD SCH (09:18)
[2019-03-23] MEDS: ENOXAPARIN 40 MG/0.4 ML SYRINGE (J1650) SC SCH (09:18)
[2019-03-23] MEDS: ANALGESIC BALM CRM 120 GM TOP SCH ×2 (09:27→21:33)
[2019-03-23 14:00] VITALS: BP 134/80
--- NOTE | 2019-03-23 15:03 | IPNPDOC ---
PM&R Progress Note DATE OF SERVICE: Mar 23, 2019 Beam Machine Operator Progress Note Subjective: Patient reporting she feels well, her paresthesias and muscle soreness are improving. She is wondering when she will go home. REVIEW OF SYSTEMS: The following is a completed review of systems and has been reviewed. Review of systems otherwise unremarkable. PAIN: Patient self reports bilateral calf cramping and aching sensation in her feet EYES: No recent vision changes EARS, NOSE, & THROAT: No throat pain, or dysphagia, or rhinorrhea CARDIOVASCULAR: Denies chest pain or palpitations PULMONARY: Denies shortness of breath GASTROINTESTINAL: Denies constipation/diarrhea GENITOURINARY: denies dysuria MUSCULOSKELETAL: bilateral UE and LE weakness NEUROLOGICAL:paresthesias with left wrist drop and bilateral foot drop SKIN: right antecubital ecchymosis PSYCHIATRIC: +anxious All other review of systems found to be negative. PHYSICAL EXAMINATION: VITAL SIGNS: Please see below. GENERAL: Pleasant and cooperative. No acute distress. anxious appearing HEENT: PERRL. Extraocular movements intact. Clear conjunctiva CARDIOVASCULAR: Regular rate and rhythm. No murmurs, rubs, or gallops LUNGS: Clear to auscultation bilaterally. No wheezes. No rhonchi ABDOMEN: Soft, nontender, nondistended. Positive bowel sounds. Normal active bowel sounds NEUROLOGICAL: Alert and oriented times three. Cranial nerves II through XII grossly intact. Sensation slightly decreased to light touch bilat LE in non- dermatomal fashion, dorsum of left hand depressed reflexes throughout EXTREMITIES: 4/5 bilateral elbow flexors, abduction, elbow extension, 3/5 right wrist extension, 0/5 left wrist extension, 4/5 bilat hip flexors, 3/5 knee extensors, ankle DF and EHL mild bilateral foot and calf edema slightly worse on the left, (left ankle non tender to palpation, no instability) SKIN: left posterior calf incision without induration or erythema ASSESSMENT:23-year-old F with past medical history of anxiety who presents status post acute onset of paresthesias and weakness diagnosed with mononeuritis multiplex PLAN: 1. Rehab: PT- strengthen/stretch/maintain ROM bilat LE, improve ambulation tolerance and endurance, better standing tolerance, able to propel own wheelchair, Mod-I from wheelchair lelve OT- strengthen/stretch/maintain ROM bilat UE, utilize resting wrist splints bilat, ok to use Estim, splint bilateral wrists at night to prevent CTSin setting of wrist drop 2. Cardio: patient with elevated BPS, will start on lisinopril, medicine consulted to assist in management 3. Resp: encourage incentive spirometry 4. Neuro: mononeuritis multiplex with left wrist drop and right wrist extension weakness, bilateral partial foot drop, neuropathic pain and difficulty bearing weight improving- c/u prednisone, autoimmune w/u and sural nerve bx results pending, will follow-up with [facility] neuro on discharge -etiology unknown, however on high dose folate 5mg daily for deficiency and elevated homocysteinemia -checking MMA levels as recent B12 normal, but may have poor absorption -will also start po thiamine given heavy ETOH hx- will also check levels as were not checked at [facility] 5. Pain: avoid Tylenol in setting of elevated liver enzymes, c/u gabapentin at lower dose 100mg TID, patient reporting improvement in paresthesias overall at this dose -c/u menthol salicylate, c/u Elavil for mood disorder which should assist with neuropathic pain 6. DVT ppx: Lovenox, dopplers negative 7. GI: elevated ALT/AST on admission trending down, most likely due to combination of obesity, heavy ETOH consumption, Cymbalta, and control- - Liver US showing, "Echogenic liver, suggesting fatty infiltration and/or fibrosis.", will refer to GI as outpatient, patient counseled on dangers of excessive ETOH intake -ppx c/u protonix BID while on steroids 8. Psych- pmh anxiety, cross tapering Cymbalta with Elavil out of concern for hepatotoxicity, discussed with psychiatry and consult placed, recs appreciate, c/u klonopin 9. Orhto: left ankle mild swelling in setting of recent fall, Xray on admission negative for fracture, however suspicious for ligamental injury, will acewrap 10. Dispo:03/30/19 to home at wheelchair level, slowly progressing towards goals Allergies Coded Allergies: No Known Allergies (Unverified , 06/04/17) Vital Signs Vital Signs Date Time Temp Pulse Resp B/P (MAP) Pulse Ox O2 Delivery O2 Flow Rate FiO2 03/23/19 14:00 97.0 98 16 134/80 (98) 97 Laboratory Data CBC/BMP Laboratory Tests 03/23/19 06:59 Red Blood Count 3.47 L, Mean Corpuscular Volume 104.9 H, Mean Corpuscular Hemoglobin 36.0 H, Mean Corpuscular Hemoglobin Concent 34.3, Red Cell Distribution Width 12.1 Labs 24H Laboratory Tests 2 03/23/19 06:59: Nucleated Red Blood Cells % (auto) 0.0 Current Medications Current Medications Current Medications Medications (Trade) Dose Ordered Sig/Dori Route PRN Reason Start Time Stop Time Status Last Admin Dose Admin Acetaminophen (Tylenol Tab) 650 mg Q4HP PRN PO fever/MILD PAIN (PS 1-4) 03/11/19 16:15 03/13/19 13:49 DC 03/13/19 10:31 Amitriptyline HCl (Elavil) 25 mg DAILY PO 03/23/19 09:00 03/23/19 09:01 DC 03/23/19 09:17 Amitriptyline HCl (Elavil) 25 mg QHS PO 03/17/19 21:00 03/22/19 23:59 DC 03/22/19 20:04 Amitriptyline HCl (Elavil) 50 mg QHS PO 03/23/19 21:00 Amlodipine Besylate (Norvasc) 5 mg DAILY PO 03/16/19 19:30 03/18/19 22:02 DC 03/18/19 08:48 Amlodipine Besylate (Norvasc) 10 mg DAILY PO 03/18/19 22:06 03/19/19 10:06 DC 03/19/19 08:29 Bisacodyl (Dulcolax Suppository) 10 mg DAILYPRN PRN [place] CONSTIPATION 03/11/19 16:15 Clonazepam (KlonoPIN) 0.5 mg BID PO 03/11/19 21:00 03/23/19 09:06 Dextrose (Dextrose 50%) 25 ml ASDIRECTED PRN IV SEE LABEL COMMENTS 03/11/19 16:30 03/11/19 17:22 DC Docusate Sodium (Colace) 100 mg BID PO 03/11/19 21:00 03/23/19 09:16 Duloxetine HCl (Cymbalta) 30 mg DAILY PO 03/18/19 09:00 03/22/19 12:00 DC 03/22/19 09:15 Duloxetine HCl (Cymbalta) 60 mg DAILY PO 03/12/19 09:00 03/17/19 14:46 DC 03/17/19 09:12 Enoxaparin Sodium (Lovenox) 40 mg DAILY SC 03/12/19 09:00 03/23/19 09:18 Folic Acid (Folic Acid) 5 mg DAILY PO 03/12/19 09:00 03/23/19 09:17 Gabapentin (Neurontin) 100 mg TID PO 03/20/19 16:00 03/23/19 09:17 Gabapentin (Neurontin) 300 mg TID PO 03/11/19 21:00 03/20/19 13:41 DC 03/20/19 09:27 Glucagon (Glucagon) 1 mg ASDIRECTED PRN SC SEE LABEL COMMENTS 03/11/19 16:30 03/11/19 17:22 DC Glucose (Glucose) 16 GM ASDIRECTED PRN PO SEE LABEL COMMENTS 03/11/19 16:30 03/11/19 17:22 DC Home Med (Med Rec Complete!) ASDIRECTED XX 03/11/19 17:45 03/11/19 17:49 DC Ibuprofen (Advil) 400 mg Q8HP PRN PO PAIN 03/15/19 12:00 03/17/19 14:46 DC 03/15/19 22:20 Insulin Human Lispro (HumaLOG INSULIN) SEE PROTOCOL TABLE AC SC 03/11/19 17:30 03/11/19 17:30 DC Lidocaine (Lidoderm Patch) 2 patch DAILY TD 03/12/19 09:00 03/23/19 09:18 Lisinopril (Prinivil) 10 mg DAILY PO 03/12/19 09:00 03/13/19 13:49 DC 03/13/19 10:32 Lisinopril (Prinivil) 20 mg DAILY PO 03/14/19 09:00 03/23/19 12:30 DC 03/23/19 09:17 Magnesium Hydroxide (Milk Of Magnesia) 30 ml DAILYPRN PRN PO CONSTIPATION 03/11/19 16:15 Menthol/Methyl Salicylate (Bengay Cream) bilat calf, av... BID TOP 03/16/19 21:00 03/23/19 09:27 Metoprolol Tartrate (Lopressor) 25 mg BID PO 03/19/19 10:15 03/23/19 12:30 DC 03/23/19 09:18 Metoprolol Tartrate (Lopressor) 25 mg TID PO 03/23/19 16:00 Miscellaneous (Unresolved Clarification Entry) SEE LABEL COMMENTS DAILY XX 03/23/19 09:00 03/23/19 12:32 DC Non-Formulary Medication ( See Comment Field Below ) REMOVE LIDODERM PATCH DAILY@21 XX 03/12/19 21:00 03/22/19 20:09 Oxycodone HCl (Roxicodone, Oxyir) 2.5 mg Q4HP PRN PO PAIN 03/11/19 16:15 03/12/19 10:10 DC Pantoprazole Sodium (Protonix) 40 mg BID PO 03/13/19 21:00 03/23/19 09:17 Pantoprazole Sodium (Protonix) 40 mg DAILY PO 03/12/19 09:00 03/13/19 13:49 DC 03/13/19 10:32 Prednisone (Deltasone) 60 mg DAILY PO 03/17/19 09:00 03/23/19 09:16 Prednisone (Deltasone) 80 mg DAILY PO 03/12/19 09:00 03/16/19 23:00 DC 03/16/19 08:42 Senna (Senokot) 1 tab QHS PO 03/11/19 21:00 03/22/19 20:03 Thiamine HCl (Thiamine HCl) 100 mg DAILY PO 03/23/19 09:00 Tizanidine HCl (Zanaflex) 2 mg Q8HP PRN PO PAIN OR DISCOMFORT 03/11/19 16:15 03/18/19 11:00 DC 03/15/19 01:51 DEBRA ARAIZA MD Mar 23, 2019 15:03
[2019-03-23] MEDS: THIAMINE 100 MG TAB PO SCH (16:46)
[2019-03-23 20:00] VITALS: BP 119/72
[2019-03-23] MEDS: SENNA 8.6 MG TAB (SENOKOT) PO SCH (21:33)
[2019-03-23] MEDS: AMITRIPTYLINE 50 MG TAB PO SCH (21:33)
[2019-03-23] MEDS: **NOTE PATIENT COMMENT** MISC XX SCH (21:42)
[2019-03-24 06:17] VITALS: BP 122/71
[2019-03-24 07:25] LABS: BASO % 0.2 % (0.0-1.0); EOS % 0.2 % (0.0-3.0); HEMATOCRIT 36.1 % (36.0-47.0); HEMOGLOBIN 12.2 g/dl (12.0-15.5); LYMPH # 4.1 10^3/uL (1.5-5.0); LYMPH % 29.3 % (24.0-44.0); MEAN CORPUSCULAR HEMOGLOBIN 34.6 pg (27.0-33.0); MEAN CORPUSCULAR HGB CONC 33.8 g/dl (32.0-36.5); MEAN CORPUSCULAR VOLUME 102.3 fl (80.0-96.0); MONO # 0.7 10^3/uL (0.0-0.8); MONO % 4.9 % (0.0-5.0); NEUTROPHILS % 64.6 % (36.0-66.0); PLATELET COUNT, AUTOMATED 304 10^3/uL (150-450); RED BLOOD COUNT 3.53 10^6/uL (4.00-5.40)
[2019-03-24 07:57] LABS: BLOOD UREA NITROGEN 11 MG/DL (7-18); CALCIUM LEVEL 8.9 MG/DL (8.5-10.1); CARBON DIOXIDE LEVEL 25 MEQ/L (21-32); CHLORIDE LEVEL 107 MEQ/L (98-107); GLOMERULAR FILTRATION RATE > 60.0 (>60); GLUCOSE, FASTING 83 MG/DL (70-100); POTASSIUM SERUM 3.6 MEQ/L (3.5-5.1); SODIUM LEVEL 139 MEQ/L (136-145)
[2019-03-24] MEDS: DOCUSATE SODIUM 100 MG CAP PO SCH ×2 (09:13→21:00)
[2019-03-24] MEDS: predniSONE 20 MG TAB PO SCH (09:13)
[2019-03-24] MEDS: LIDOCAINE 5% (LIDODERM) PATCH TD SCH (09:13)
[2019-03-24] MEDS: THIAMINE 100 MG TAB PO SCH (09:13)
[2019-03-24] MEDS: GABAPENTIN 100 MG CAP PO SCH ×3 (09:13→21:32)
[2019-03-24] MEDS: ENOXAPARIN 40 MG/0.4 ML SYRINGE (J1650) SC SCH (09:14)
[2019-03-24] MEDS: clonazePAM 0.5 MG TAB PO SCH ×2 (09:14→21:32)
[2019-03-24] MEDS: FOLIC ACID 1 MG TAB PO SCH (09:14)
[2019-03-24] MEDS: PANTOPRAZOLE 40MG TAB (PROTONIX) PO SCH ×2 (09:14→21:31)
[2019-03-24] MEDS: ANALGESIC BALM CRM 120 GM TOP SCH ×2 (09:15→21:42)
[2019-03-24] MEDS: METOPROLOL TART 25 MG TABLET PO SCH ×3 (09:17→21:32)
--- NOTE | 2019-03-24 12:04 | IPNPDOC ---
PM&R Progress Note DATE OF SERVICE: Mar 24, 2019 [employer] Progress Note Subjective: Patient reporting she feels well, that she has not walked as much due to leg cramping, but is agreeable to trying to walk more. Her ramp will nit be ready un friday she states today. REVIEW OF SYSTEMS: The following is a completed review of systems and has been reviewed. Review of systems otherwise unremarkable. PAIN: Patient self reports bilateral calf cramping and aching sensation in her feet EYES: No recent vision changes EARS, NOSE, & THROAT: No throat pain, or dysphagia, or rhinorrhea CARDIOVASCULAR: Denies chest pain or palpitations PULMONARY: Denies shortness of breath GASTROINTESTINAL: Denies constipation/diarrhea GENITOURINARY: denies dysuria MUSCULOSKELETAL: bilateral UE and LE weakness NEUROLOGICAL:paresthesias with left wrist drop and bilateral foot drop SKIN: right antecubital ecchymosis PSYCHIATRIC: +anxious All other review of systems found to be negative. PHYSICAL EXAMINATION: VITAL SIGNS: Please see below. GENERAL: Pleasant and cooperative. No acute distress. anxious appearing HEENT: PERRL. Extraocular movements intact. Clear conjunctiva CARDIOVASCULAR: Regular rate and rhythm. No murmurs, rubs, or gallops LUNGS: Clear to auscultation bilaterally. No wheezes. No rhonchi ABDOMEN: Soft, nontender, nondistended. Positive bowel sounds. Normal active bowel sounds NEUROLOGICAL: Alert and oriented times three. Cranial nerves II through XII grossly intact. Sensation slightly decreased to light touch bilat LE in non- dermatomal fashion, dorsum of left hand depressed reflexes throughout EXTREMITIES: 4/5 bilateral elbow flexors, abduction, elbow extension, 3/5 right wrist extension, 0/5 left wrist extension, 4/5 bilat hip flexors, 3/5 knee extensors, ankle DF and EHL mild bilateral foot and calf edema slightly worse on the left, (left ankle non tender to palpation, no instability) SKIN: left posterior calf incision without induration or erythema ASSESSMENT:23-year-old F with past medical history of anxiety who presents status post acute onset of paresthesias and weakness diagnosed with mononeuritis multiplex PLAN: 1. Rehab: PT- strengthen/stretch/maintain ROM bilat LE, improve ambulation tolerance and endurance, better standing tolerance, able to propel own wheelchair, Mod-I from wheelchair level, anticipate room privileges today OT- strengthen/stretch/maintain ROM bilat UE, utilize resting wrist splints bilat, ok to use Estim, splint bilateral wrists at night to prevent CTS in setting of wrist drop 2. Cardio: patient with elevated BPS, will start on lisinopril, medicine co nsulted to assist in management 3. Resp: encourage incentive spirometry 4. Neuro: mononeuritis multiplex with left wrist drop and right wrist extension weakness, bilateral partial foot drop, neuropathic pain and difficulty bearing weight improving- c/u prednisone, autoimmune w/u and sural nerve bx results pending, will follow-up with [facility] neuro on discharge -etiology unknown, however on high dose folate 5mg daily for deficiency and elevated homocysteinemia -checking MMA levels as recent B12 normal, but may have poor absorption, will start B12 supplements -will also start po thiamine given heavy ETOH hx- will also check levels as were not checked at [facility] 5. Pain: avoid Tylenol in setting of elevated liver enzymes, c/u gabapentin at lower dose 100mg TID, patient reporting improvement in paresthesias overall at this dose -c/u menthol salicylate, c/u Elavil for mood disorder which should assist with neuropathic pain 6. DVT ppx: Lovenox, dopplers negative 7. GI: elevated ALT/AST on admission trending down, most likely due to combination of obesity, heavy ETOH consumption, Cymbalta, and control- - Liver US showing, "Echogenic liver, suggesting fatty infiltration and/or fibrosis.", will refer to GI as outpatient, patient counseled on dangers of excessive ETOH intake -ppx c/u protonix BID while on steroids 8. Psych- pmh anxiety, cross tapered Cymbalta with Elavil out of concern for hepatotoxicity, discussed with psychiatry and consult placed, recs appreciate, c/u klonopin- mood stable 9. Orhto: left ankle mild swelling in setting of recent fall, Xray on admission negative for fracture, however suspicious for ligamental injury, c/u acewrap 10. Dispo:03/30/19 to home at wheelchair level, and supervision for household distances, progressing towards goals Allergies Coded Allergies: No Known Allergies (Unverified , 06/04/17) Vital Signs Vital Signs Date Time Temp Pulse Resp B/P (MAP) Pulse Ox O2 Delivery O2 Flow Rate FiO2 03/24/19 09:17 102 138/88 03/24/19 06:17 97.7 16 96 Laboratory Data CBC/BMP Laboratory Tests 03/24/19 06:41 Red Blood Count 3.53 L, Mean Corpuscular Volume 102.3 H, Mean Corpuscular Hemoglobin 34.6 H, Mean Corpuscular Hemoglobin Concent 33.8, Red Cell Distribution Width 12.1, Neutrophils (%) (Auto) 64.6, Lymphocytes (%) (Auto) 29.3, Monocytes (%) (Auto) 4.9, Eosinophils (%) (Auto) 0.2, Basophils (%) (Auto) 0.2, Neutrophils # (Auto) 9.0 H, Lymphocytes # (Auto) 4.1, Monocytes # (Auto) 0.7, Eosinophils # (Auto) 0.0, Basophils # (Auto) 0.0, Calcium Level 8.9 Labs 24H Laboratory Tests 2 03/24/19 06:41: Immature Granulocyte % (Auto) 0.8, White Blood Count 14.0H, Red Blood Count 3.53L, Hemoglobin 12.2, Hematocrit 36.1, Mean Corpuscular Volume 102.3H, Mean Corpuscular Hemoglobin 34.6H, Mean Corpuscular Hemoglobin Concent 33.8, Red Cell Distribution Width 12.1, Platelet Count 304, Neutrophils (%) (Auto) 64.6, Lymphocytes (%) (Auto) 29.3, Monocytes (%) (Auto) 4.9, Eosinophils (%) (Auto) 0.2, Basophils (%) (Auto) 0.2, Neutrophils # (Auto) 9.0H, Lymphocytes # (Auto) 4.1, Monocytes # (Auto) 0.7, Eosinophils # (Auto) 0.0, Basophils # (Auto) 0.0, Nucleated Red Blood Cells % (auto) 0.0, Anion Gap 7L, Glomerular Filtration Rate > 60.0, Blood Urea Nitrogen 11, Creatinine 0.60, Sodium Level 139, Potassium Level 3.6, Chloride Level 107, Carbon Dioxide Level 25, Calcium Level 8.9 Current Medications Current Medications Current Medications Medications (Trade) Dose Ordered Sig/Dori Route PRN Reason Start Time Stop Time Status Last Admin Dose Admin Acetaminophen (Tylenol Tab) 650 mg Q4HP PRN PO fever/MILD PAIN (PS 1-4) 03/11/19 16:15 03/13/19 13:49 DC 03/13/19 10:31 Amitriptyline HCl (Elavil) 25 mg DAILY PO 03/23/19 09:00 03/23/19 09:01 DC 03/23/19 09:17 Amitriptyline HCl (Elavil) 25 mg QHS PO 03/17/19 21:00 03/22/19 23:59 DC 03/22/19 20:04 Amitriptyline HCl (Elavil) 50 mg QHS PO 03/23/19 21:00 03/23/19 21:33 Amlodipine Besylate (Norvasc) 5 mg DAILY PO 03/16/19 19:30 03/18/19 22:02 DC 03/18/19 08:48 Amlodipine Besylate (Norvasc) 10 mg DAILY PO 03/18/19 22:06 03/19/19 10:06 DC 03/19/19 08:29 Bisacodyl (Dulcolax Suppository) 10 mg DAILYPRN PRN [place] CONSTIPATION 03/11/19 16:15 Clonazepam (KlonoPIN) 0.5 mg BID PO 03/11/19 21:00 03/24/19 09:14 Cyanocobalamin (Vitamin B12) 2,000 mcg DAILY@1300 PO 03/24/19 13:00 Dextrose (Dextrose 50%) 25 ml ASDIRECTED PRN IV SEE LABEL COMMENTS 03/11/19 16:30 03/11/19 17:22 DC Docusate Sodium (Colace) 100 mg BID PO 03/11/19 21:00 03/24/19 09:13 Duloxetine HCl (Cymbalta) 30 mg DAILY PO 03/18/19 09:00 03/22/19 12:00 DC 03/22/19 09:15 Duloxetine HCl (Cymbalta) 60 mg DAILY PO 03/12/19 09:00 03/17/19 14:46 DC 03/17/19 09:12 Enoxaparin Sodium (Lovenox) 40 mg DAILY SC 03/12/19 09:00 03/24/19 09:14 Folic Acid (Folic Acid) 5 mg DAILY PO 03/12/19 09:00 03/24/19 09:14 Gabapentin (Neurontin) 100 mg TID PO 03/20/19 16:00 03/24/19 09:13 Gabapentin (Neurontin) 300 mg TID PO 03/11/19 21:00 03/20/19 13:41 DC 03/20/19 09:27 Glucagon (Glucagon) 1 mg ASDIRECTED PRN SC SEE LABEL COMMENTS 03/11/19 16:30 03/11/19 17:22 DC Glucose (Glucose) 16 GM ASDIRECTED PRN PO SEE LABEL COMMENTS 03/11/19 16:30 03/11/19 17:22 DC Home Med (Med Rec Complete!) ASDIRECTED XX 03/11/19 17:45 03/11/19 17:49 DC Ibuprofen (Advil) 400 mg Q8HP PRN PO PAIN 03/15/19 12:00 03/17/19 14:46 DC 03/15/19 22:20 Insulin Human Lispro (HumaLOG INSULIN) SEE PROTOCOL TABLE AC SC 03/11/19 17:30 03/11/19 17:30 DC Lidocaine (Lidoderm Patch) 2 patch DAILY TD 03/12/19 09:00 03/24/19 09:13 Lisinopril (Prinivil) 10 mg DAILY PO 03/12/19 09:00 03/13/19 13:49 DC 03/13/19 10:32 Lisinopril (Prinivil) 20 mg DAILY PO 03/14/19 09:00 03/23/19 12:30 DC 03/23/19 09:17 Magnesium Hydroxide (Milk Of Magnesia) 30 ml DAILYPRN PRN PO CONSTIPATION 03/11/19 16:15 Menthol/Methyl Salicylate (Bengay Cream) bilat calf, av... BID TOP 03/16/19 21:00 03/24/19 09:15 Metoprolol Tartrate (Lopressor) 25 mg BID PO 03/19/19 10:15 03/23/19 12:30 DC 03/23/19 09:18 Metoprolol Tartrate (Lopressor) 25 mg TID PO 03/23/19 16:00 03/24/19 09:17 Miscellaneous (Unresolved Clarification Entry) SEE LABEL COMMENTS DAILY XX 03/23/19 09:00 03/23/19 12:32 DC Non-Formulary Medication ( See Comment Field Below ) REMOVE LIDODERM PATCH DAILY@21 XX 03/12/19 21:00 03/23/19 21:42 Oxycodone HCl (Roxicodone, Oxyir) 2.5 mg Q4HP PRN PO PAIN 03/11/19 16:15 03/12/19 10:10 DC Pantoprazole Sodium (Protonix) 40 mg BID PO 03/13/19 21:00 03/24/19 09:14 Pantoprazole Sodium (Protonix) 40 mg DAILY PO 03/12/19 09:00 03/13/19 13:49 DC 03/13/19 10:32 Prednisone (Deltasone) 60 mg DAILY PO 03/17/19 09:00 03/24/19 09:13 Prednisone (Deltasone) 80 mg DAILY PO 03/12/19 09:00 03/16/19 23:00 DC 03/16/19 08:42 Senna (Senokot) 1 tab QHS PO 03/11/19 21:00 03/23/19 21:33 Thiamine HCl (Thiamine HCl) 100 mg DAILY PO 03/23/19 09:00 03/23/19 15:03 DC Thiamine HCl (Thiamine HCl) 100 mg DAILY PO 03/23/19 09:00 03/24/19 09:13 Tizanidine HCl (Zanaflex) 2 mg Q8HP PRN PO PAIN OR DISCOMFORT 03/11/19 16:15 03/18/19 11:00 DC 03/15/19 01:51 DEBRA ARAIZA MD Mar 24, 2019 12:04
[2019-03-24] MEDS: CYANOCOBALAMIN 500 MCG TAB PO SCH (12:44)
[2019-03-24 13:34] VITALS: BP 188/95
[2019-03-24 13:37] VITALS: BP 160/96
[2019-03-24 14:00] VITALS: BP 139/81
[2019-03-24] MEDS: SENNA 8.6 MG TAB (SENOKOT) PO SCH (21:00)
[2019-03-24] MEDS: AMITRIPTYLINE 50 MG TAB PO SCH (21:31)
[2019-03-24] MEDS: **NOTE PATIENT COMMENT** MISC XX SCH (21:49)
[2019-03-25 00:06] LABS: Methylmalonic Acid 128 nmol/L (0-378)
[2019-03-25 04:00] VITALS: BP 154/85
--- NOTE | 2019-03-25 09:36 | IPNPDOC ---
PM&R Progress Note DATE OF SERVICE: Mar 25, 2019 Client Reporting Associate Progress Note Subjective: Patient fell yesterday while transferring off the toilet, denies any injury, but has been tearful and feeling more down because she is disappointed in herself. REVIEW OF SYSTEMS: The following is a completed review of systems and has been r eviewed. Review of systems otherwise unremarkable. PAIN: Patient self reports bilateral calf cramping and aching sensation in her feet EYES: No recent vision changes EARS, NOSE, & THROAT: No throat pain, or dysphagia, or rhinorrhea CARDIOVASCULAR: Denies chest pain or palpitations PULMONARY: Denies shortness of breath GASTROINTESTINAL: Denies constipation/diarrhea GENITOURINARY: denies dysuria MUSCULOSKELETAL: bilateral UE and LE weakness NEUROLOGICAL:paresthesias with left wrist drop and bilateral foot drop SKIN: right antecubital ecchymosis PSYCHIATRIC: +anxious All other review of systems found to be negative. PHYSICAL EXAMINATION: VITAL SIGNS: Please see below. GENERAL: Pleasant and cooperative. No acute distress. anxious appearing HEENT: PERRL. Extraocular movements intact. Clear conjunctiva CARDIOVASCULAR: Regular rate and rhythm. No murmurs, rubs, or gallops LUNGS: Clear to auscultation bilaterally. No wheezes. No rhonchi ABDOMEN: Soft, nontender, nondistended. Positive bowel sounds. Normal active bowel sounds NEUROLOGICAL: Alert and oriented times three. Cranial nerves II through XII grossly intact. Sensation slightly decreased to light touch bilat LE in non- dermatomal fashion, dorsum of left hand depressed reflexes throughout EXTREMITIES: 4/5 bilateral elbow flexors, abduction, elbow extension, 3/5 right wrist extension, 0/5 left wrist extension, 4/5 bilat hip flexors, 3/5 knee extensors, ankle DF and EHL mild bilateral foot and calf edema slightly worse on the left, (left ankle non tender to palpation, no instability) SKIN: left posterior calf incision without induration or erythema ASSESSMENT:23-year-old F with past medical history of anxiety who presents status post acute onset of paresthesias and weakness diagnosed with mononeuritis multiplex PLAN: 1. Rehab: PT- strengthen/stretch/maintain ROM bilat LE, improve ambulation tolerance and endurance, better standing tolerance, able to propel own wheelchair, Mod-I from wheelchair level OT- strengthen/stretch/maintain ROM bilat UE, utilize resting wrist splints bilat, ok to use Estim, splint bilateral wrists at night to prevent CTS in setting of wrist drop 2. Cardio: patient with elevated BPS, will start on lisinopril, medicine consulted to assist in management 3. Resp: encourage incentive spirometry 4. Neuro: mononeuritis multiplex with left wrist drop and right wrist extension weakness, bilateral partial foot drop, neuropathic pain and difficulty bearing weight improving- c/u prednisone, autoimmune w/u and sural nerve bx results pending, will follow-up with [facility] neuro on discharge -etiology unknown, however on high dose folate 5mg daily for deficiency and elevated homocysteinemia -B12 and MMA levels normal, will c/u B12 supplement -c/u po thiamine given heavy ETOH hx- will also check levels as were not checked at [facility] 5. Pain: avoid Tylenol in setting of elevated liver enzymes, c/u gabapentin at lower dose 100mg TID, patient reporting improvement in paresthesias overall at this dose -c/u menthol salicylate, c/u Elavil for mood disorder which should assist with neuropathic pain 6. DVT ppx: Lovenox, dopplers negative 7. GI: elevated ALT/AST on admission trending down, most likely due to combination of obesity, heavy ETOH consumption, Cymbalta, and control- - Liver US showing, "Echogenic liver, suggesting fatty infiltration and/or fibrosis.", will refer to GI as outpatient, patient counseled on dangers of excessive ETOH intake -ppx c/u protonix BID while on steroids 8. Psych- pmh anxiety, cross tapered Cymbalta with Elavil out of concern for hepatotoxicity, discussed with psychiatry and consult placed, recs appreciate, c/u klonopin- mood stable -c/u Elavil 50qHS and add 50q daily starting today 9. Orhto: left ankle mild swelling in setting of recent fall, Xray on admission negative for fracture, however suspicious for ligamental injury, c/u acewrap 10. Dispo:03/30/19 to home at wheelchair level, and supervision for household distances, progressing towards goals Allergies Coded Allergies: No Known Allergies (Unverified , 06/04/17) Vital Signs Vital Signs Date Time Temp Pulse Resp B/P (MAP) Pulse Ox O2 Delivery O2 Flow Rate FiO2 03/25/19 04:00 99.3 86 18 154/85 (108) 98 Laboratory Data Labs 24H Laboratory Tests 2 03/24/19 13:54: Urine Color YELLOW, Urine Appearance HAZY, Urine pH 6.0, Urine Specific [place] 1.023, Urine Protein NEGATIVE, Urine Glucose (UA) NEGATIVE, Urine Ketones NEGATIVE, Urine Blood NEGATIVE, Urine Nitrite NEGATIVE, Urine Bilirubin NEGATIVE, Urine Urobilinogen 0.2, Urine Leukocyte Esterase TRACEH, Urine WBC (Auto) 0, Urine RBC (Auto) 3, Urine Hyaline Casts (Auto) 0, Urine Bacteria (Auto) 1+H, Urine Squamous Epithelial Cells 6, Urine Amorphous Sediment SMALLH, Urine Mucus (Auto) SMALL, Urine Sperm (Auto) Microbiology Microbiology 03/24/19 Urine Culture, Received Pending Current Medications Current Medications Current Medications Medications (Trade) Dose Ordered Sig/Dori Route PRN Reason Start Time Stop Time Status Last Admin Dose Admin Acetaminophen (Tylenol Tab) 650 mg Q4HP PRN PO fever/MILD PAIN (PS 1-4) 03/11/19 16:15 03/13/19 13:49 DC 03/13/19 10:31 Amitriptyline HCl (Elavil) 25 mg DAILY PO 03/23/19 09:00 03/23/19 09:01 DC 03/23/19 09:17 Amitriptyline HCl (Elavil) 25 mg QHS PO 03/17/19 21:00 03/22/19 23:59 DC 03/22/19 20:04 Amitriptyline HCl (Elavil) 50 mg QHS PO 03/23/19 21:00 03/24/19 21:31 Amlodipine Besylate (Norvasc) 5 mg DAILY PO 03/16/19 19:30 03/18/19 22:02 DC 03/18/19 08:48 Amlodipine Besylate (Norvasc) 10 mg DAILY PO 03/18/19 22:06 03/19/19 10:06 DC 03/19/19 08:29 Bisacodyl (Dulcolax Suppository) 10 mg DAILYPRN PRN [place] CONSTIPATION 03/11/19 16:15 Clonazepam (KlonoPIN) 0.5 mg BID PO 03/11/19 21:00 03/24/19 21:32 Cyanocobalamin (Vitamin B12) 2,000 mcg DAILY@1300 PO 03/24/19 13:00 03/24/19 12:44 Dextrose (Dextrose 50%) 25 ml ASDIRECTED PRN IV SEE LABEL COMMENTS 03/11/19 16:30 03/11/19 17:22 DC Docusate Sodium (Colace) 100 mg BID PO 03/11/19 21:00 03/24/19 09:13 Duloxetine HCl (Cymbalta) 30 mg DAILY PO 03/18/19 09:00 03/22/19 12:00 DC 03/22/19 09:15 Duloxetine HCl (Cymbalta) 60 mg DAILY PO 03/12/19 09:00 03/17/19 14:46 DC 03/17/19 09:12 Enoxaparin Sodium (Lovenox) 40 mg DAILY SC 03/12/19 09:00 03/24/19 09:14 Folic Acid (Folic Acid) 5 mg DAILY PO 03/12/19 09:00 03/24/19 09:14 Gabapentin (Neurontin) 100 mg TID PO 03/20/19 16:00 03/24/19 21:32 Gabapentin (Neurontin) 300 mg TID PO 03/11/19 21:00 03/20/19 13:41 DC 03/20/19 09:27 Glucagon (Glucagon) 1 mg ASDIRECTED PRN SC SEE LABEL COMMENTS 03/11/19 16:30 03/11/19 17:22 DC Glucose (Glucose) 16 GM ASDIRECTED PRN PO SEE LABEL COMMENTS 03/11/19 16:30 03/11/19 17:22 DC Home Med (Med Rec Complete!) ASDIRECTED XX 03/11/19 17:45 03/11/19 17:49 DC Ibuprofen (Advil) 400 mg Q8HP PRN PO PAIN 03/15/19 12:00 03/17/19 14:46 DC 03/15/19 22:20 Insulin Human Lispro (HumaLOG INSULIN) SEE PROTOCOL TABLE AC SC 03/11/19 17:30 03/11/19 17:30 DC Lidocaine (Lidoderm Patch) 2 patch DAILY TD 03/12/19 09:00 03/24/19 09:13 Lisinopril (Prinivil) 10 mg DAILY PO 03/12/19 09:00 03/13/19 13:49 DC 03/13/19 10:32 Lisinopril (Prinivil) 20 mg DAILY PO 03/14/19 09:00 03/23/19 12:30 DC 03/23/19 09:17 Magnesium Hydroxide (Milk Of Magnesia) 30 ml DAILYPRN PRN PO CONSTIPATION 03/11/19 16:15 Menthol/Methyl Salicylate (Bengay Cream) bilat calf, av... BID TOP 03/16/19 21:00 03/24/19 21:42 Metoprolol Tartrate (Lopressor) 25 mg BID PO 03/19/19 10:15 03/23/19 12:30 DC 03/23/19 09:18 Metoprolol Tartrate (Lopressor) 25 mg TID PO 03/23/19 16:00 03/24/19 21:32 Miscellaneous (Unresolved Clarification Entry) SEE LABEL COMMENTS DAILY XX 03/23/19 09:00 03/23/19 12:32 DC Non-Formulary Medication ( See Comment Field Below ) REMOVE LIDODERM PATCH DAILY@21 XX 03/12/19 21:00 03/24/19 21:49 Oxycodone HCl (Roxicodone, Oxyir) 2.5 mg Q4HP PRN PO PAIN 03/11/19 16:15 03/12/19 10:10 DC Pantoprazole Sodium (Protonix) 40 mg BID PO 03/13/19 21:00 03/24/19 21:31 Pantoprazole Sodium (Protonix) 40 mg DAILY PO 03/12/19 09:00 03/13/19 13:49 DC 03/13/19 10:32 Prednisone (Deltasone) 60 mg DAILY PO 03/17/19 09:00 03/24/19 09:13 Prednisone (Deltasone) 80 mg DAILY PO 03/12/19 09:00 03/16/19 23:00 DC 03/16/19 08:42 Senna (Senokot) 1 tab QHS PO 03/11/19 21:00 03/23/19 21:33 Thiamine HCl (Thiamine HCl) 100 mg DAILY PO 03/23/19 09:00 03/23/19 15:03 DC Thiamine HCl (Thiamine HCl) 100 mg DAILY PO 03/23/19 09:00 03/24/19 09:13 Tizanidine HCl (Zanaflex) 2 mg Q8HP PRN PO PAIN OR DISCOMFORT 03/11/19 16:15 03/18/19 11:00 DC 03/15/19 01:51 DEBRA ARAIZA MD Mar 25, 2019 09:36
[2019-03-25] MEDS: PANTOPRAZOLE 40MG TAB (PROTONIX) PO SCH ×2 (09:46→20:16)
[2019-03-25] MEDS: ENOXAPARIN 40 MG/0.4 ML SYRINGE (J1650) SC SCH (09:46)
[2019-03-25] MEDS: AMITRIPTYLINE 50 MG TAB PO SCH ×2 (09:47→20:15)
[2019-03-25] MEDS: THIAMINE 100 MG TAB PO SCH (09:47)
[2019-03-25] MEDS: clonazePAM 0.5 MG TAB PO SCH ×2 (09:47→20:16)
[2019-03-25] MEDS: METOPROLOL TART 25 MG TABLET PO SCH ×3 (09:47→20:16)
[2019-03-25] MEDS: predniSONE 20 MG TAB PO SCH (09:47)
[2019-03-25] MEDS: GABAPENTIN 100 MG CAP PO SCH ×3 (09:47→20:16)
[2019-03-25] MEDS: FOLIC ACID 1 MG TAB PO SCH (09:47)
[2019-03-25] MEDS: DOCUSATE SODIUM 100 MG CAP PO SCH ×2 (09:47→20:16)
[2019-03-25] MEDS: ANALGESIC BALM CRM 120 GM TOP SCH ×2 (09:48→20:16)
[2019-03-25] MEDS: LIDOCAINE 5% (LIDODERM) PATCH TD SCH (09:48)
[2019-03-25] MEDS: CYANOCOBALAMIN 500 MCG TAB PO SCH (13:42)
[2019-03-25 14:00] VITALS: BP 119/79
[2019-03-25] MEDS: SENNA 8.6 MG TAB (SENOKOT) PO SCH (20:15)
[2019-03-25] MEDS: **NOTE PATIENT COMMENT** MISC XX SCH (20:17)
[2019-03-25 21:24] VITALS: BP 138/81
[2019-03-26 05:52] VITALS: BP 150/80
[2019-03-26] MEDS: DOCUSATE SODIUM 100 MG CAP PO SCH ×2 (09:00→20:54)
[2019-03-26] MEDS: GABAPENTIN 100 MG CAP PO SCH ×3 (10:16→20:53)
[2019-03-26] MEDS: clonazePAM 0.5 MG TAB PO SCH ×2 (10:16→20:55)
[2019-03-26] MEDS: predniSONE 20 MG TAB PO SCH (10:16)
[2019-03-26] MEDS: PANTOPRAZOLE 40MG TAB (PROTONIX) PO SCH ×2 (10:16→20:54)
[2019-03-26] MEDS: AMITRIPTYLINE 50 MG TAB PO SCH ×2 (10:16→20:53)
[2019-03-26] MEDS: THIAMINE 100 MG TAB PO SCH (10:16)
[2019-03-26] MEDS: METOPROLOL TART 25 MG TABLET PO SCH ×3 (10:16→20:55)
[2019-03-26] MEDS: FOLIC ACID 1 MG TAB PO SCH (10:16)
[2019-03-26] MEDS: LIDOCAINE 5% (LIDODERM) PATCH TD SCH (10:17)
[2019-03-26] MEDS: ANALGESIC BALM CRM 120 GM TOP SCH ×2 (10:17→20:55)
[2019-03-26] MEDS: ENOXAPARIN 40 MG/0.4 ML SYRINGE (J1650) SC SCH (10:21)
--- NOTE | 2019-03-26 11:57 | IPNPDOC ---
PM&R Progress Note DATE OF SERVICE: Mar 26, 2019 [employer] Progress Note Subjective: Patient wondering what the results of her nerve biopsy are. She reports her mood is better today. REVIEW OF SYSTEMS: The following is a completed review of systems and has been reviewed. Review of systems otherwise unremarkable. PAIN: Patient self reports bilateral calf cramping and aching sensation in her feet EYES: No recent vision changes EARS, NOSE, & THROAT: No throat pain, or dysphagia, or rhinorrhea CARDIOVASCULAR: Denies chest pain or palpitations PULMONARY: Denies shortness of breath GASTROINTESTINAL: Denies constipation/diarrhea GENITOURINARY: denies dysuria MUSCULOSKELETAL: bilateral UE and LE weakness NEUROLOGICAL:paresthesias with left wrist drop and bilateral foot drop SKIN: right antecubital ecchymosis PSYCHIATRIC: +anxious All other review of systems found to be negative. PHYSICAL EXAMINATION: VITAL SIGNS: Please see below. GENERAL: Pleasant and cooperative. No acute distress. anxious appearing HEENT: PERRL. Extraocular movements intact. Clear conjunctiva CARDIOVASCULAR: Regular rate and rhythm. No murmurs, rubs, or gallops LUNGS: Clear to auscultation bilaterally. No wheezes. No rhonchi ABDOMEN: Soft, nontender, nondistended. Positive bowel sounds. Normal active bowel sounds NEUROLOGICAL: Alert and oriented times three. Cranial nerves II through XII grossly intact. Sensation slightly decreased to light touch bilat LE in non-dermatomal fashion, dorsum of left hand depressed reflexes throughout EXTREMITIES: 4/5 bilateral elbow flexors, abduction, elbow extension, 3/5 right wrist extension, 0/5 left wrist extension, 4/5 bilat hip flexors, 3/5 knee extensors, ankle DF and EHL mild bilateral foot and calf edema slightly worse on the left, (left ankle non tender to palpation, no instability) SKIN: left posterior calf incision without induration or erythema ASSESSMENT:23-year-old F with past medical history of anxiety who presents st atus post acute onset of paresthesias and weakness diagnosed with mononeuritis multiplex PLAN: 1. Rehab: PT- strengthen/stretch/maintain ROM bilat LE, improve ambulation tolerance and endurance, better standing tolerance, able to propel own wheelchair, Mod-I from wheelchair level OT- strengthen/stretch/maintain ROM bilat UE, utilize resting wrist splints bilat, ok to use Estim, splint bilateral wrists at night to prevent CTS in setting of wrist drop 2. Cardio: patient with elevated BPS, will start on lisinopril, medicine consulted to assist in management 3. Resp: encourage incentive spirometry 4. Neuro: mononeuritis multiplex with left wrist drop and right wrist extension weakness, bilateral partial foot drop, neuropathic pain and difficulty bearing weight improving- c/u prednisone, autoimmune w/u and sural nerve bx results pending, will follow-up with [facility] neuro on discharge -etiology unknown, however on high dose folate 5mg daily for deficiency and elevated homocysteinemia -B12 and MMA levels normal, will c/u B12 supplement -c/u po thiamine given heavy ETOH hx- will also check levels as were not checked at [facility] 5. Pain: avoid Tylenol in setting of elevated liver enzymes, c/u gabapentin at lower dose 100mg TID, patient reporting improvement in paresthesias overall at this dose -c/u menthol salicylate, c/u Elavil for mood disorder which should assist with neuropathic pain 6. DVT ppx: Lovenox, dopplers negative 7. GI: elevated ALT/AST on admission trending down, most likely due to combination of obesity, heavy ETOH consumption, Cymbalta, and control- - Liver US showing, "Echogenic liver, suggesting fatty infiltration and/or fibrosis.", will refer to GI as outpatient, patient counseled on dangers of excessive ETOH intake -ppx c/u protonix BID while on steroids 8. Psych- pmh anxiety, cross tapered Cymbalta with Elavil out of concern for hepatotoxicity, discussed with psychiatry and consult placed, recs appreciate, c/u klonopin- mood stable -c/u Elavil 50 BID- mood improving 9. Orhto: left ankle mild swelling in setting of recent fall, Xray on admission negative for fracture, however suspicious for ligamental injury, c/u acewrap 10. Dispo:03/30/19 to home at wheelchair level, and supervision for household distances, progressing towards goals Allergies Coded Allergies: No Known Allergies (Unverified , 06/04/17) Vital Signs Vital Signs Date Time Temp Pulse Resp B/P (MAP) Pulse Ox O2 Delivery O2 Flow Rate FiO2 03/26/19 10:16 88 150/80 03/26/19 05:52 97.4 18 97 Microbiology Microbiology 03/24/19 Urine Culture - Final, Complete Current Medications Current Medications Current Medications Medications (Trade) Dose Ordered Sig/Dori Route PRN Reason Start Time Stop Time Status Last Admin Dose Admin Acetaminophen (Tylenol Tab) 650 mg Q4HP PRN PO fever/MILD PAIN (PS 1-4) 03/11/19 16:15 03/13/19 13:49 DC 03/13/19 10:31 Amitriptyline HCl (Elavil) 25 mg DAILY PO 03/23/19 09:00 03/23/19 09:01 DC 03/23/19 09:17 Amitriptyline HCl (Elavil) 25 mg QHS PO 03/17/19 21:00 03/22/19 23:59 DC 03/22/19 20:04 Amitriptyline HCl (Elavil) 50 mg BID PO 03/25/19 09:00 03/26/19 10:16 Amitriptyline HCl (Elavil) 50 mg QHS PO 03/23/19 21:00 03/25/19 09:34 DC 03/24/19 21:31 Amlodipine Besylate (Norvasc) 5 mg DAILY PO 03/16/19 19:30 03/18/19 22:02 DC 03/18/19 08:48 Amlodipine Besylate (Norvasc) 10 mg DAILY PO 03/18/19 22:06 03/19/19 10:06 DC 03/19/19 08:29 Bisacodyl (Dulcolax Suppository) 10 mg DAILYPRN PRN [place] CONSTIPATION 03/11/19 16:15 Clonazepam (KlonoPIN) 0.5 mg BID PO 03/11/19 21:00 03/26/19 10:16 Cyanocobalamin (Vitamin B12) 2,000 mcg DAILY@1300 PO 03/24/19 13:00 03/25/19 13:42 Dextrose (Dextrose 50%) 25 ml ASDIRECTED PRN IV SEE LABEL COMMENTS 03/11/19 16:30 03/11/19 17:22 DC Docusate Sodium (Colace) 100 mg BID PO 03/11/19 21:00 03/25/19 20:16 Duloxetine HCl (Cymbalta) 30 mg DAILY PO 03/18/19 09:00 03/22/19 12:00 DC 03/22/19 09:15 Duloxetine HCl (Cymbalta) 60 mg DAILY PO 03/12/19 09:00 03/17/19 14:46 DC 03/17/19 09:12 Enoxaparin Sodium (Lovenox) 40 mg DAILY SC 03/12/19 09:00 03/26/19 10:21 Folic Acid (Folic Acid) 5 mg DAILY PO 03/12/19 09:00 03/26/19 10:16 Gabapentin (Neurontin) 100 mg TID PO 03/20/19 16:00 03/26/19 10:16 Gabapentin (Neurontin) 300 mg TID PO 03/11/19 21:00 03/20/19 13:41 DC 03/20/19 09:27 Glucagon (Glucagon) 1 mg ASDIRECTED PRN SC SEE LABEL COMMENTS 03/11/19 16:30 03/11/19 17:22 DC Glucose (Glucose) 16 GM ASDIRECTED PRN PO SEE LABEL COMMENTS 03/11/19 16:30 03/11/19 17:22 DC Home Med (Med Rec Complete!) ASDIRECTED XX 03/11/19 17:45 03/11/19 17:49 DC Ibuprofen (Advil) 400 mg Q8HP PRN PO PAIN 03/15/19 12:00 03/17/19 14:46 DC 03/15/19 22:20 Insulin Human Lispro (HumaLOG INSULIN) SEE PROTOCOL TABLE AC SC 03/11/19 17:30 03/11/19 17:30 DC Lidocaine (Lidoderm Patch) 2 patch DAILY TD 03/12/19 09:00 03/26/19 10:17 Lisinopril (Prinivil) 10 mg DAILY PO 03/12/19 09:00 03/13/19 13:49 DC 03/13/19 10:32 Lisinopril (Prinivil) 20 mg DAILY PO 03/14/19 09:00 03/23/19 12:30 DC 03/23/19 09:17 Magnesium Hydroxide (Milk Of Magnesia) 30 ml DAILYPRN PRN PO CONSTIPATION 03/11/19 16:15 Menthol/Methyl Salicylate (Bengay Cream) bilat calf, av... BID TOP 03/16/19 21:00 03/26/19 10:17 Metoprolol Tartrate (Lopressor) 25 mg BID PO 03/19/19 10:15 03/23/19 12:30 DC 03/23/19 09:18 Metoprolol Tartrate (Lopressor) 25 mg TID PO 03/23/19 16:00 03/26/19 10:16 Miscellaneous (Unresolved Clarification Entry) SEE LABEL COMMENTS DAILY XX 03/23/19 09:00 03/23/19 12:32 DC Non-Formulary Medication ( See Comment Field Below ) REMOVE LIDODERM PATCH DAILY@21 XX 03/12/19 21:00 03/25/19 20:17 Oxycodone HCl (Roxicodone, Oxyir) 2.5 mg Q4HP PRN PO PAIN 03/11/19 16:15 03/12/19 10:10 DC Pantoprazole Sodium (Protonix) 40 mg BID PO 03/13/19 21:00 03/26/19 10:16 Pantoprazole Sodium (Protonix) 40 mg DAILY PO 03/12/19 09:00 03/13/19 13:49 DC 03/13/19 10:32 Prednisone (Deltasone) 60 mg DAILY PO 03/17/19 09:00 03/26/19 10:16 Prednisone (Deltasone) 80 mg DAILY PO 03/12/19 09:00 03/16/19 23:00 DC 03/16/19 08:42 Senna (Senokot) 1 tab QHS PO 03/11/19 21:00 03/25/19 20:15 Thiamine HCl (Thiamine HCl) 100 mg DAILY PO 03/23/19 09:00 03/23/19 15:03 DC Thiamine HCl (Thiamine HCl) 100 mg DAILY PO 03/23/19 09:00 03/26/19 10:16 Tizanidine HCl (Zanaflex) 2 mg Q8HP PRN PO PAIN OR DISCOMFORT 03/11/19 16:15 03/18/19 11:00 DC 03/15/19 01:51 DEBRA ARAIZA MD Mar 26, 2019 11:57
[2019-03-26] MEDS: CYANOCOBALAMIN 500 MCG TAB PO SCH (12:39)
[2019-03-26 14:00] VITALS: BP 131/85
[2019-03-26 20:00] VITALS: BP 142/78
[2019-03-26] MEDS: SENNA 8.6 MG TAB (SENOKOT) PO SCH (20:53)
[2019-03-26] MEDS: **NOTE PATIENT COMMENT** MISC XX SCH (20:55)
[2019-03-27 04:00] VITALS: BP 135/85
[2019-03-27] MEDS: FOLIC ACID 1 MG TAB PO SCH (08:59)
[2019-03-27] MEDS: clonazePAM 0.5 MG TAB PO SCH ×2 (08:59→20:16)
[2019-03-27] MEDS: predniSONE 20 MG TAB PO SCH (08:59)
[2019-03-27] MEDS: METOPROLOL TART 25 MG TABLET PO SCH ×3 (08:59→20:16)
[2019-03-27] MEDS: AMITRIPTYLINE 50 MG TAB PO SCH ×2 (08:59→20:16)
[2019-03-27] MEDS: PANTOPRAZOLE 40MG TAB (PROTONIX) PO SCH ×2 (08:59→20:16)
[2019-03-27] MEDS: THIAMINE 100 MG TAB PO SCH (08:59)
[2019-03-27] MEDS: GABAPENTIN 100 MG CAP PO SCH ×3 (08:59→20:16)
[2019-03-27] MEDS: LIDOCAINE 5% (LIDODERM) PATCH TD SCH (09:00)
[2019-03-27] MEDS: ANALGESIC BALM CRM 120 GM TOP SCH ×2 (09:00→20:17)
[2019-03-27] MEDS: ENOXAPARIN 40 MG/0.4 ML SYRINGE (J1650) SC SCH (09:00)
[2019-03-27] MEDS: DOCUSATE SODIUM 100 MG CAP PO SCH ×2 (09:00→20:16)
[2019-03-27] MEDS: CYANOCOBALAMIN 500 MCG TAB PO SCH (12:17)
[2019-03-27 14:00] VITALS: BP 125/79
[2019-03-27 19:52] VITALS: BP 130/77
[2019-03-27] MEDS: SENNA 8.6 MG TAB (SENOKOT) PO SCH (20:16)
[2019-03-27] MEDS: **NOTE PATIENT COMMENT** MISC XX SCH (20:17)
[2019-03-28 06:00] VITALS: BP 129/90
[2019-03-28] MEDS: predniSONE 20 MG TAB PO SCH (07:35)
[2019-03-28] MEDS: clonazePAM 0.5 MG TAB PO SCH ×2 (07:35→20:15)
[2019-03-28] MEDS: LIDOCAINE 5% (LIDODERM) PATCH TD SCH (07:35)
[2019-03-28] MEDS: FOLIC ACID 1 MG TAB PO SCH (07:35)
[2019-03-28] MEDS: ENOXAPARIN 40 MG/0.4 ML SYRINGE (J1650) SC SCH (07:35)
[2019-03-28] MEDS: PANTOPRAZOLE 40MG TAB (PROTONIX) PO SCH ×2 (07:35→20:15)
[2019-03-28] MEDS: DOCUSATE SODIUM 100 MG CAP PO SCH ×2 (07:36→20:16)
[2019-03-28] MEDS: AMITRIPTYLINE 50 MG TAB PO SCH ×2 (07:36→20:15)
[2019-03-28] MEDS: METOPROLOL TART 25 MG TABLET PO SCH ×3 (07:36→20:15)
[2019-03-28] MEDS: THIAMINE 100 MG TAB PO SCH (07:36)
[2019-03-28] MEDS: GABAPENTIN 100 MG CAP PO SCH ×3 (07:36→20:15)
[2019-03-28] MEDS: ANALGESIC BALM CRM 120 GM TOP SCH ×2 (07:37→20:16)
[2019-03-28] MEDS: CYANOCOBALAMIN 500 MCG TAB PO SCH (12:14)
[2019-03-28 14:00] VITALS: BP 134/75
[2019-03-28 20:00] VITALS: BP 140/80
[2019-03-28] MEDS: SENNA 8.6 MG TAB (SENOKOT) PO SCH (20:15)
[2019-03-28] MEDS: **NOTE PATIENT COMMENT** MISC XX SCH (20:16)
[2019-03-29 06:00] VITALS: BP 140/80
[2019-03-29 06:39] LABS: BASO % 0.3 % (0.0-1.0); EOS # 0.1 10^3/uL (0.0-0.5); EOS % 0.4 % (0.0-3.0); HEMATOCRIT 34.1 % (36.0-47.0); HEMOGLOBIN 11.5 g/dl (12.0-15.5); LYMPH # 3.5 10^3/uL (1.5-5.0); LYMPH % 30.8 % (24.0-44.0); MEAN CORPUSCULAR HEMOGLOBIN 34.6 pg (27.0-33.0); MEAN CORPUSCULAR HGB CONC 33.7 g/dl (32.0-36.5); MEAN CORPUSCULAR VOLUME 102.7 fl (80.0-96.0); MONO # 0.8 10^3/uL (0.0-0.8); MONO % 6.8 % (0.0-5.0); NEUTROPHILS # 6.9 10^3/uL (1.5-8.5); PLATELET COUNT, AUTOMATED 266 10^3/uL (150-450); RED BLOOD COUNT 3.32 10^6/uL (4.00-5.40); WHITE BLOOD COUNT 11.4 10^3/uL (4.0-10.0)
[2019-03-29 07:02] LABS: ALBUMIN 3.1 GM/DL (3.2-5.2); ALT/SGPT 39 U/L (12-78); BILIRUBIN,TOTAL 0.3 MG/DL (0.2-1.0); BLOOD UREA NITROGEN 15 MG/DL (7-18); CALCIUM LEVEL 8.8 MG/DL (8.5-10.1); CARBON DIOXIDE LEVEL 26 MEQ/L (21-32); CHLORIDE LEVEL 106 MEQ/L (98-107); CREATININE FOR GFR 0.63 MG/DL (0.55-1.30); GLOMERULAR FILTRATION RATE > 60.0 (>60); GLUCOSE, FASTING 92 MG/DL (70-100); POTASSIUM SERUM 3.4 MEQ/L (3.5-5.1); SODIUM LEVEL 141 MEQ/L (136-145); TOTAL PROTEIN 5.7 GM/DL (6.4-8.2)
--- NOTE | 2019-03-29 10:20 | IPNPDOC ---
PM&R Progress Note DATE OF SERVICE: Mar 29, 2019 [employer] Research Technician Progress Note Subjective: Patient stating she thinks her mood is getting better on the new medication and is eager to go home tomorrow. REVIEW OF SYSTEMS: The following is a completed review of systems and has been reviewed. Review of systems otherwise unremarkable. PAIN: Patient self reports bilateral calf cramping and aching sensation in her feet EYES: No recent vision changes EARS, NOSE, & THROAT: No throat pain, or dysphagia, or rhinorrhea CARDIOVASCULAR: Denies chest pain or palpitations PULMONARY: Denies shortness of breath GASTROINTESTINAL: Denies constipation/diarrhea GENITOURINARY: denies dysuria MUSCULOSKELETAL: bilateral UE and LE weakness NEUROLOGICAL:paresthesias with left wrist drop and bilateral foot drop SKIN: right antecubital ecchymosis PSYCHIATRIC: +anxious All other review of systems found to be negative. PHYSICAL EXAMINATION: VITAL SIGNS: Please see below. GENERAL: Pleasant and cooperative. No acute distress. anxious appearing HEENT: PERRL. Extraocular movements intact. Clear conjunctiva CARDIOVASCULAR: Regular rate and rhythm. No murmurs, rubs, or gallops LUNGS: Clear to auscultation bilaterally. No wheezes. No rhonchi ABDOMEN: Soft, nontender, nondistended. Positive bowel sounds. Normal active bowel sounds NEUROLOGICAL: Alert and oriented times three. Cranial nerves II through XII grossly intact. Sensation slightly decreased to light touch bilat LE in non- dermatomal fashion, dorsum of left hand depressed reflexes throughout EXTREMITIES: 4/5 bilateral elbow flexors, abduction, elbow extension, 3/5 right wrist extension, 0/5 left wrist extension, 4/5 bilat hip flexors, 3/5 knee extensors, ankle DF and EHL mild bilateral foot and calf edema slightly worse on the left, (left ankle non tender to palpation, no instability) SKIN: left posterior calf incision without induration or erythema ASSESSMENT:23-year-old F with past medical history of anxiety who presents status post acute onset of paresthesias and weakness diagnosed with mononeuritis multiplex PLAN: 1. Rehab: PT- strengthen/stretch/maintain ROM bilat LE, improve ambulation tolerance and endurance, better standing tolerance, able to propel own wheelchair, Mod-I from wheelchair level OT- strengthen/stretch/maintain ROM bilat UE, utilize resting wrist splints bilat, ok to use Estim, splint bilateral wrists at night to prevent CTS in setting of wrist drop 2. Cardio: patient with elevated BPS, will start on lisinopril, medicine consulted to assist in management 3. Resp: encourage incentive spirometry 4. Neuro: mononeuritis multiplex with left wrist drop and right wrist extension weakness, bilateral partial foot drop, neuropathic pain and difficulty bearing weight improving- c/u prednisone, autoimmune w/u and sural nerve bx results pen min, will follow-up with [facility] neuro on discharge -etiology unknown, however on high dose folate 5mg daily for deficiency and elevated homocysteinemia -B12 and MMA levels normal, will c/u B12 supplement -c/u po thiamine given heavy ETOH hx- levels normal 5. Pain: avoid Tylenol in setting of elevated liver enzymes, c/u gabapentin at lower dose 100mg TID, patient reporting improvement in paresthesias overall at this dose -c/u menthol salicylate, c/u Elavil for mood disorder which should assist with neuropathic pain 6. DVT ppx: Lovenox, dopplers negative 7. GI: elevated ALT/AST on admission trending down, most likely due to combination of obesity, heavy ETOH consumption, Cymbalta, and control- - Liver US showing, "Echogenic liver, suggesting fatty infiltration and/or fibrosis.", will refer to GI as outpatient, patient counseled on dangers of excessive ETOH intake -ppx c/u protonix BID while on steroids 8. Psych- pmh anxiety, cross tapered Cymbalta with Elavil out of concern for hepatotoxicity, discussed with psychiatry and consult placed, recs appreciate, c/u klonopin- mood stable -c/u Elavil 50 BID- mood improving, aptient to f/u with PMD who prescribes psych meds 9. Ortho: left ankle mild swelling in setting of recent fall, Xray on admission negative for fracture, however suspicious for ligamental injury, c/u acewrap 10. Leukocytosis due to steroids, no signs of infection, Ua and Ucx negative 11. Hypokalemia- 3.4 today will give one time dose 20meq 12. Dispo:03/30/19 to home at wheelchair level, and supervision for household dis tances, progressing towards goals Allergies Coded Allergies: No Known Allergies (Unverified , 06/04/17) Vital Signs Vital Signs Date Time Temp Pulse Resp B/P (MAP) Pulse Ox O2 Delivery O2 Flow Rate FiO2 03/29/19 06:00 97.1 98 18 140/80 (100) 97 Laboratory Data CBC/BMP Laboratory Tests 03/29/19 06:15 Red Blood Count 3.32 L, Mean Corpuscular Volume 102.7 H, Mean Corpuscular Hemoglobin 34.6 H, Mean Corpuscular Hemoglobin Concent 33.7, Red Cell Distribution Width 12.0, Neutrophils (%) (Auto) 60.0, Lymphocytes (%) (Auto) 30.8, Monocytes (%) (Auto) 6.8 H, Eosinophils (%) (Auto) 0.4, Basophils (%) (Auto) 0.3, Neutrophils # (Auto) 6.9, Lymphocytes # (Auto) 3.5, Monocytes # (Auto) 0.8, Eosinophils # (Auto) 0.1, Basophils # (Auto) 0.0, Calcium Level 8.8, Aspartate Amino Transf (AST/SGOT) 4 L, Alanine Aminotransferase (ALT/SGPT) 39, Alkaline Phosphatase 46, Total Bilirubin 0.3, Total Protein 5.7 L, Albumin 3.1 L Labs 24H Laboratory Tests 2 03/29/19 06:15: Immature Granulocyte % (Auto) 1.7, White Blood Count 11.4H, Red Blood Count 3.32L, Hemoglobin 11.5L, Hematocrit 34.1L, Mean Corpuscular Volume 102.7H, Mean Corpuscular Hemoglobin 34.6H, Mean Corpuscular Hemoglobin Concent 33.7, Red Cell Distribution Width 12.0, Platelet Count 266, Neutrophils (%) (Auto) 60.0, Lymphocytes (%) (Auto) 30.8, Monocytes (%) (Auto) 6.8H, Eosinophils (%) (Auto) 0.4, Basophils (%) (Auto) 0.3, Neutrophils # (Auto) 6.9, Lymphocytes # (Auto) 3.5, Monocytes # (Auto) 0.8, Eosinophils # (Auto) 0.1, Basophils # (Auto) 0.0, Nucleated Red Blood Cells % (auto) 0.0, Anion Gap 9, Glomerular Filtration Rate > 60.0, Blood Urea Nitrogen 15, Creatinine 0.63, Sodium Level 141, Potassium Level 3.4L, Chloride Level 106, Carbon Dioxide Level 26, Calcium Level 8.8, Aspartate Amino Transf (AST/SGOT) 4L, Alanine Aminotransferase (ALT/SGPT) 39, Alkaline Phosphatase 46, Total Bilirubin 0.3, Total Protein 5.7L, Albumin 3.1L, Albumin/Globulin Ratio 1.19 Microbiology Microbiology 03/24/19 Urine Culture - Final, Complete Current Medications Current Medications Current Medications Medications (Trade) Dose Ordered Sig/Dori Route PRN Reason Start Time Stop Time Status Last Admin Dose Admin Acetaminophen (Tylenol Tab) 650 mg Q4HP PRN PO fever/MILD PAIN (PS 1-4) 03/11/19 16:15 03/13/19 13:49 DC 03/13/19 10:31 Amitriptyline HCl (Elavil) 25 mg DAILY PO 03/23/19 09:00 03/23/19 09:01 DC 03/23/19 09:17 Amitriptyline HCl (Elavil) 25 mg QHS PO 03/17/19 21:00 03/22/19 23:59 DC 03/22/19 20:04 Amitriptyline HCl (Elavil) 50 mg BID PO 03/25/19 09:00 03/28/19 20:15 Amitriptyline HCl (Elavil) 50 mg QHS PO 03/23/19 21:00 03/25/19 09:34 DC 03/24/19 21:31 Amlodipine Besylate (Norvasc) 5 mg DAILY PO 03/16/19 19:30 03/18/19 22:02 DC 03/18/19 08:48 Amlodipine Besylate (Norvasc) 10 mg DAILY PO 03/18/19 22:06 03/19/19 10:06 DC 03/19/19 08:29 Bisacodyl (Dulcolax Suppository) 10 mg DAILYPRN PRN [place] CONSTIPATION 03/11/19 16:15 Clonazepam (KlonoPIN) 0.5 mg BID PO 03/11/19 21:00 03/28/19 20:15 Cyanocobalamin (Vitamin B12) 2,000 mcg DAILY@1300 PO 03/24/19 13:00 03/28/19 12:14 Dextrose (Dextrose 50%) 25 ml ASDIRECTED PRN IV SEE LABEL COMMENTS 03/11/19 16:30 03/11/19 17:22 DC Docusate Sodium (Colace) 100 mg BID PO 03/11/19 21:00 03/28/19 20:16 Duloxetine HCl (Cymbalta) 30 mg DAILY PO 03/18/19 09:00 03/22/19 12:00 DC 03/22/19 09:15 Duloxetine HCl (Cymbalta) 60 mg DAILY PO 03/12/19 09:00 03/17/19 14:46 DC 03/17/19 09:12 Enoxaparin Sodium (Lovenox) 40 mg DAILY SC 03/12/19 09:00 03/28/19 07:35 Folic Acid (Folic Acid) 5 mg DAILY PO 03/12/19 09:00 03/28/19 07:35 Gabapentin (Neurontin) 100 mg TID PO 03/20/19 16:00 03/28/19 20:15 Gabapentin (Neurontin) 300 mg TID PO 03/11/19 21:00 03/20/19 13:41 DC 03/20/19 09:27 Glucagon (Glucagon) 1 mg ASDIRECTED PRN SC SEE LABEL COMMENTS 03/11/19 16:30 03/11/19 17:22 DC Glucose (Glucose) 16 GM ASDIRECTED PRN PO SEE LABEL COMMENTS 03/11/19 16:30 03/11/19 17:22 DC Home Med (Med Rec Complete!) ASDIRECTED XX 03/11/19 17:45 03/11/19 17:49 DC Ibuprofen (Advil) 400 mg Q8HP PRN PO PAIN 03/15/19 12:00 03/17/19 14:46 DC 03/15/19 22:20 Insulin Human Lispro (HumaLOG INSULIN) SEE PROTOCOL TABLE AC SC 03/11/19 17:30 03/11/19 17:30 DC Lidocaine (Lidoderm Patch) 2 patch DAILY TD 03/12/19 09:00 03/28/19 07:35 Lisinopril (Prinivil) 10 mg DAILY PO 03/12/19 09:00 03/13/19 13:49 DC 03/13/19 10:32 Lisinopril (Prinivil) 20 mg DAILY PO 03/14/19 09:00 03/23/19 12:30 DC 03/23/19 09:17 Magnesium Hydroxide (Milk Of Magnesia) 30 ml DAILYPRN PRN PO CONSTIPATION 03/11/19 16:15 Menthol/Methyl Salicylate (Bengay Cream) bilat calf, av... BID TOP 03/16/19 21:00 03/28/19 20:16 Metoprolol Tartrate (Lopressor) 25 mg BID PO 03/19/19 10:15 03/23/19 12:30 DC 03/23/19 09:18 Metoprolol Tartrate (Lopressor) 25 mg TID PO 03/23/19 16:00 03/28/19 20:15 Miscellaneous (Unresolved Clarification Entry) SEE LABEL COMMENTS DAILY XX 03/23/19 09:00 03/23/19 12:32 DC Non-Formulary Medication ( See Comment Field Below ) REMOVE LIDODERM PATCH DAILY@21 XX 03/12/19 21:00 03/28/19 20:16 Oxycodone HCl (Roxicodone, Oxyir) 2.5 mg Q4HP PRN PO PAIN 03/11/19 16:15 03/12/19 10:10 DC Pantoprazole Sodium (Protonix) 40 mg BID PO 03/13/19 21:00 03/28/19 20:15 Pantoprazole Sodium (Protonix) 40 mg DAILY PO 03/12/19 09:00 03/13/19 13:49 DC 03/13/19 10:32 Prednisone (Deltasone) 60 mg DAILY PO 03/17/19 09:00 03/28/19 07:35 Prednisone (Deltasone) 80 mg DAILY PO 03/12/19 09:00 03/16/19 23:00 DC 03/16/19 08:42 Senna (Senokot) 1 tab QHS PO 03/11/19 21:00 03/28/19 20:15 Thiamine HCl (Thiamine HCl) 100 mg DAILY PO 03/23/19 09:00 03/23/19 15:03 DC Thiamine HCl (Thiamine HCl) 100 mg DAILY PO 03/23/19 09:00 03/28/19 07:36 Tizanidine HCl (Zanaflex) 2 mg Q8HP PRN PO PAIN OR DISCOMFORT 03/11/19 16:15 03/18/19 11:00 DC 03/15/19 01:51 DEBRA ARAIZA MD Mar 29, 2019 10:20
[2019-03-29] MEDS ORDERED: THIA100TA PO (10:24)
[2019-03-29] MEDS ORDERED: METO1TAB87 PO (10:24)
[2019-03-29] MEDS ORDERED: FOLI1TAB11 PO (10:24)
[2019-03-29] MEDS ORDERED: PRED20TA PO (10:24)
[2019-03-29] MEDS ORDERED: PANT40TA3 PO (10:24)
[2019-03-29] MEDS ORDERED: GABA-1171 PO (10:24)
[2019-03-29] MEDS ORDERED: AMIT50TA PO (10:24)
[2019-03-29] MEDS: LIDOCAINE 5% (LIDODERM) PATCH TD SCH (10:32)
[2019-03-29] MEDS: AMITRIPTYLINE 50 MG TAB PO SCH ×2 (10:33→21:09)
[2019-03-29] MEDS: ENOXAPARIN 40 MG/0.4 ML SYRINGE (J1650) SC SCH (10:33)
[2019-03-29] MEDS: DOCUSATE SODIUM 100 MG CAP PO SCH ×2 (10:33→21:08)
[2019-03-29] MEDS: predniSONE 20 MG TAB PO SCH (10:33)
[2019-03-29] MEDS: clonazePAM 0.5 MG TAB PO SCH ×2 (10:34→21:09)
[2019-03-29] MEDS: PANTOPRAZOLE 40MG TAB (PROTONIX) PO SCH ×2 (10:34→21:08)
[2019-03-29] MEDS: THIAMINE 100 MG TAB PO SCH (10:34)
[2019-03-29] MEDS: GABAPENTIN 100 MG CAP PO SCH ×3 (10:34→21:08)
[2019-03-29] MEDS: METOPROLOL TART 25 MG TABLET PO SCH ×3 (10:34→21:09)
[2019-03-29] MEDS: FOLIC ACID 1 MG TAB PO SCH (10:34)
[2019-03-29] MEDS: ANALGESIC BALM CRM 120 GM TOP SCH ×2 (10:37→21:09)
[2019-03-29] MEDS ORDERED: POTASSIUM CHLORIDE 10 MEQ SR TABLET PO ONE (11:00)
[2019-03-29] MEDS: CYANOCOBALAMIN 500 MCG TAB PO SCH (12:33)
[2019-03-29 14:00] VITALS: BP 129/80
[2019-03-29 19:17] VITALS: BP 127/68
[2019-03-29] MEDS: **NOTE PATIENT COMMENT** MISC XX SCH (21:09)
[2019-03-29] MEDS: SENNA 8.6 MG TAB (SENOKOT) PO SCH (21:09)
[2019-03-30 06:00] VITALS: BP 138/91
[2019-03-30 09:00] VITALS: BP 133/82
[2019-03-30] MEDS: THIAMINE 100 MG TAB PO SCH (09:33)
[2019-03-30] MEDS: DOCUSATE SODIUM 100 MG CAP PO SCH (09:33)
[2019-03-30] MEDS: GABAPENTIN 100 MG CAP PO SCH (09:33)
[2019-03-30] MEDS: predniSONE 20 MG TAB PO SCH (09:34)
[2019-03-30] MEDS: FOLIC ACID 1 MG TAB PO SCH (09:34)
[2019-03-30] MEDS: PANTOPRAZOLE 40MG TAB (PROTONIX) PO SCH (09:34)
[2019-03-30 09:35] VITALS: BP 133/82
[2019-03-30] MEDS: clonazePAM 0.5 MG TAB PO SCH (09:35)
[2019-03-30] MEDS: ENOXAPARIN 40 MG/0.4 ML SYRINGE (J1650) SC SCH (09:35)
[2019-03-30] MEDS: METOPROLOL TART 25 MG TABLET PO SCH (09:35)
[2019-03-30] MEDS: LIDOCAINE 5% (LIDODERM) PATCH TD SCH (09:35)
[2019-03-30] MEDS: AMITRIPTYLINE 50 MG TAB PO SCH (09:35)
[2019-03-30] MEDS: ANALGESIC BALM CRM 120 GM TOP SCH (09:36)
[2019-03-30] MEDS: CYANOCOBALAMIN 500 MCG TAB PO SCH (12:10)
== END 2019-03-30 14:15 | disposition home or self-care (01) | DRG 48 ==
LOC: M PM&R 16:23
PROVIDERS: ADMIT Physical Medicine & Rehabilitation; ATTEND Physical Medicine & Rehabilitation
DX: G58.7 Mononeuritis multiplex (principal); K70.0 Alcoholic fatty liver; F41.9 Anxiety disorder, unspecified; F17.200 Nicotine dependence, unspecified, uncomplicated; E87.6 Hypokalemia; R60.0 Localized edema; M79.89 Other specified soft tissue disorders; D72.829 Elevated white blood cell count, unspecified; Z79.52 Long term (current) use of systemic steroids; Z79.899 Other long term (current) drug therapy

== ENCOUNTER 2022-02-05 09:25 | Emergency (ER) | payer BC, OTHER ==
[~2022-02-05] VITALS: Ht 167.6 cm; Wt 81.8 kg
[~2022-02-05 09:25] MED LIST changes: +AMIT50TA PO; +CLON0.5T2 PO; +DULO60CA35 PO; +FOLI1TAB11 PO; +GABA-1171 PO; +GABA-282 PO; +METO1TAB87 PO; +OXYC-517 PO; +PANT40TA29 PO; +PRED20TA PO; +THIA100TA PO; +TIZA10TA PO
[2022-02-05] MEDS ORDERED: NS 1,000 ML IV ONE (12:25)
[2022-02-05 12:42] LABS: HEMOGLOBIN 9.8 g/dl (12.0-15.5); MEAN CORPUSCULAR HEMOGLOBIN 32.2 pg (27.0-33.0); MEAN CORPUSCULAR HGB CONC 33.8 g/dl (32.0-36.5); MEAN CORPUSCULAR VOLUME 95.4 fl (80.0-96.0); PLATELET COUNT, AUTOMATED 308 10^3/uL (150-450); RED BLOOD COUNT 3.04 10^6/uL (4.00-5.40); WHITE BLOOD COUNT 10.4 10^3/uL (4.0-10.0)
[2022-02-05 12:56] LABS: INR 1.25; PROTHROMBIN TIME 16.2 SECONDS (12.7-14.5)
[2022-02-05 12:57] LABS: PARTIAL THROMBOPLASTIN TIME 29.4 SECONDS (25.9-37.0)
[2022-02-05 12:59] LABS: D-DIMER QUANT 336.04 ng/ml (<500)
[2022-02-05 13:25] LABS: RSV AMPLIFICATION NEGATIVE (NEGATIVE)
[2022-02-05 13:30] LABS: FERRITIN 360 NG/ML (8-252); IRON (FE) 128 UG/DL (50-170); PERCENT SATURATION 99.2 % (13.2-45.0); TOTAL IRON BINDING CAPACITY 129 UG/DL (250-450)
[2022-02-05 13:33] LABS: HCG, SERUM QUALITATIVE NEGATIVE (NEGATIVE)
[2022-02-05 13:36] LABS: C REACTIVE PROTEIN QUANTITATIV 0.44 MG/DL (0.00-0.30); MAGNESIUM LEVEL 1.4 MG/DL (1.8-2.4); THYROID STIMULATING HORMONE 2.84 uIU/ML (0.358-3.740)
[2022-02-05 13:37] LABS: ALBUMIN 2.8 GM/DL (3.2-5.2); ALT/SGPT 18 U/L (12-78); BILIRUBIN,TOTAL 1.8 MG/DL (0.2-1.0); BLOOD UREA NITROGEN 7 MG/DL (7-18); CALCIUM LEVEL 8.6 MG/DL (8.5-10.1); CARBON DIOXIDE LEVEL 30 MEQ/L (21-32); CHLORIDE LEVEL 84 MEQ/L (98-107); CREATININE FOR GFR 1.02 MG/DL (0.55-1.30); GLOMERULAR FILTRATION RATE > 60.0 (>60); GLUCOSE, FASTING 93 MG/DL (70-100); SODIUM LEVEL 130 MEQ/L (136-145); TOTAL PROTEIN 6.1 GM/DL (6.4-8.2)
[2022-02-05] MEDS ORDERED: POTASSIUM CHLORIDE 10MEQ SR TABLET PO ONE (13:55)
[2022-02-05] MEDS ORDERED: MAG SULF 1GM/100ML (MAG RUN) 1 GM in IV 1 EA IV ONE (13:55)
[2022-02-05 13:59] LABS: FOLATE < 0.4 NG/ML (>5.4); VITAMIN B12 LEVEL 1267 PG/ML (247-911)
[2022-02-05] MEDS ORDERED: RA M500C PO (20:42)
[2022-02-05] MEDS ORDERED: POTA20EL PO (20:42)
[2022-02-05 20:56] VITALS: BP 126/59
== END 2022-02-05 21:00 | disposition home or self-care (01) ==
LOC: M ED 09:25
DX: D64.9 Anemia, unspecified (principal); R53.1 Weakness; E87.6 Hypokalemia; E87.1 Hypo-osmolality and hyponatremia; E83.42 Hypomagnesemia; R00.0 Tachycardia, unspecified; R06.02 Shortness of breath; R05.9 Cough, unspecified; R21 Rash and other nonspecific skin eruption; I10 Essential (primary) hypertension; R51.9 Headache, unspecified; F32.A Depression, unspecified; F41.9 Anxiety disorder, unspecified; E66.9 Obesity, unspecified; Z79.899 Other long term (current) drug therapy
CPT/HCPCS: 70450; 70551; 71046; 80053; 82550; 82607; 82728; 82746; 83036; 83550; 83735; 83880; 84443; 84703; 85027; 85379; 85610; 85652; 85730; 86140; 87631; 93005; 96361; 96365; 96366; 99284; J3475

== ENCOUNTER 2022-08-04 10:26 | Emergency (ER) | payer OTHER ==
[~2022-08-04] VITALS: Ht 170.2 cm; Wt 86.1 kg
[~2022-08-04 10:26] MED LIST changes: +POTA20EL PO; +RA M500C PO
[2022-08-04] MEDS ORDERED: AMPICILLIN SOD/SULBACTAM SOD 3 GM in D5W MINI-BAG PLUS 100 ML IV ONE (11:40)
[2022-08-04 12:13] LABS: BASO % 0.5 % (0.0-1.0); EOS # 0.1 10^3/uL (0.0-0.5); EOS % 1.1 % (0.0-3.0); HEMATOCRIT 40.5 % (36.0-47.0); HEMOGLOBIN 12.8 g/dl (12.0-15.5); LYMPH # 2.3 10^3/uL (1.5-5.0); LYMPH % 26.4 % (24.0-44.0); MEAN CORPUSCULAR HEMOGLOBIN 27.5 pg (27.0-33.0); MEAN CORPUSCULAR HGB CONC 31.6 g/dl (32.0-36.5); MEAN CORPUSCULAR VOLUME 87.1 fl (80.0-96.0); MONO # 0.6 10^3/uL (0.0-0.8); MONO % 6.4 % (2.0-8.0); NEUTROPHILS # 5.6 10^3/uL (1.5-8.5); NEUTROPHILS % 65.5 % (36.0-66.0); PLATELET COUNT, AUTOMATED 286 10^3/uL (150-450); RED BLOOD COUNT 4.65 10^6/uL (4.00-5.40); WHITE BLOOD COUNT 8.6 10^3/uL (4.0-10.0)
[2022-08-04 12:23] LABS: ERYTHROCYTE SEDIMENTATION RATE 19 mm/hr (0-20)
[2022-08-04] MEDS ORDERED: ISOVUE-370 76% 100ML VIAL As Ordered ONE (12:42)
[2022-08-04] MEDS ORDERED: AMOX875T2 PO (13:24)
[2022-08-04] MEDS ORDERED: IBUP80TA PO (13:24)
[2022-08-04 13:35] VITALS: BP 117/62
== END 2022-08-04 13:50 | disposition home or self-care (01) ==
LOC: M ED 10:26
DX: L03.213 Periorbital cellulitis (principal); L03.211 Cellulitis of face; K08.89 Other specified disorders of teeth and supporting structures; K02.9 Dental caries, unspecified; K65.9 Peritonitis, unspecified; I10 Essential (primary) hypertension; F32.A Depression, unspecified; F41.9 Anxiety disorder, unspecified; Z79.899 Other long term (current) drug therapy
CPT/HCPCS: 36415; 70491; 80047; 84702; 85025; 85652; 86140; 87040; 96365; 96375; 99284; J1100